=== PATIENT | female | born 1945 | race Caucasian/White ===

== ENCOUNTER 2024-07-22 13:22 | Inpatient (IN) ==
--- NOTE | 2024-07-22 13:39 | EKG ---
Test Reason : ams Blood Pressure : */* mmHG Vent. Rate : 61 BPM Atrial Rate : 61 BPM P-R Int : 142 ms QRS Dur : 78 ms QT Int : 462 ms P-R-T Axes : 55 5 44 degrees QTc Int : 465 ms Normal sinus rhythm Normal ECG No previous ECGs available Confirmed by Kun Barton MD ([id number]) on 07/23/2024 6:18:21 AM Referred By: Confirmed By: Kun Barton MD
--- NOTE | 2024-07-22 13:50 | DR.AMS ---
HPI Time Seen Time Seen by Provider: 07/22/24 13:48 Complaint Cheif Complaint Doctors Comments: Patient was brought in by EMS, they responded to an altered mental status wound got there is states that she was alert we evaluated here and found that she was at [facility] on fourth and the night and was sent back home. She complained of some shortness of breath cough green sputum and headache here as reported. She is afebrile here but her blood pressure was elevated at 173/86. Her oxygen saturation was 96% on room air. Patient also had diarrhea for the last 3 weeks she has got more diarrhea over the last week. Chief Complaint:: Patient brought in via [facility] with reports of AMS, COVID 2 weeks ago, seen in [place] on and but was sent home. Patient c/o SOB, cough with green sputum, and a headache COVID-19 Coronavirus risk:travel/contact w/high risk person: No Has patient experienced Coronavirus symptoms: No Source History Provided: Patient Mode of Arrival Mode of Arrival: EMS Timing Onset of Chief Complaint: 07/22/24 PMH PMH Past Medical History: Yes Past Medical History: Hypertension Past Surgical History: Yes Surgical History: Cholecystectomy Social History Type of Tobacco Use: None Alcohol Use: None Do you use any recreational Drugs:: No Lives With: Family Lives Where: Home Travel Risk Coronavirus risk:travel/contact w/high risk person: No Has patient experienced Coronavirus symptoms: No Infectious screening Have you traveled outside the country in the last 6 months?: No Isolation: Standard ROS Review of Systems Constitutional: Other (Diarrhea off and on for 3 weeks history of urinary tract infection) Eyes: No Symptoms Reported ENTM: No Symptoms Reported Respiratoy: No Symptoms Reported Cardiovascular: No Symptoms Reported Gastrointestinal/Abdominal: Diarrhea and Other (chronic uti) Genitourinary: No Symptoms Reported Neurological: No Symptoms Reported Musculoskeletal: No Symptoms Reported Integumentary: No Symptoms Reported Hematologic/Lymphatic: No Symptoms Reported Endocrine: No Symptoms Reported Psychiatric: No Symptoms Reported PE Vitals Vital Signs: Temp Pulse Resp BP Pulse Ox O2 Del Method 07/22/24 13:34 98.8 F 62 18 173/86 96 Room Air General Limitations: No Limitations General Appearance: In Distress (mild distress) Head Head Exam: Normal Inspection, Atraumatic and Normocephalic Eyes Eye exam: Normal Appearance, PERRL and EOMI ENT ENT Exam: Normal Exam, Normal Oropharynx and Normal External Ear Exam External Ear Exam: Normal External Inspection Neck Neck Exam: Normal Inspection Chest Chest Inspection: Normal Inspection and Symmetric Chest Wall Rise Respiratory Respiratory Exam: Other (rhonchi) Respiratory Exam: Bilateral: Rhonchi Cardiovascular Cardiovascular Exam: Regular Rate Abdominal Exam Abdominal Exam: Normal Inspection, Normal Bowel Sounds and Soft Extremities Extremities Exam: Normal Inspection Back Back Exam: Normal Inspection and Full ROM Neurological Neurological Exam: Alert, Oriented X3 and CN II-XII Intact Patient Oriented To: Person Speech: Fluid Speech Motor Strength - LUE: 3/5 Motor Strength - RUE: 3/5 Motor Strength - LLE: 3/5 Motor Strength - RLE: 3/5 Psychological Psychiatric Exam: Depressed Skin Skin Exam: Warm, Dry and Intact MDM Differential Diagnosis Metabolic: Dehydration and Hyponatremia Toxicologic: Medication Toxicity Infectious: UTI COURSE Treatment Treatment: And her urine analysis so she had too numerous to count white blood cells thus 1 bacteria and leukocyte esterase was positive. The patient did have a CBC that was done and are WBC was 14.6 hemoglobin 10.7 hematocrit 31.6 platelets 418 she did have a metabolic panel done in which the BUN was 21 creatinine was 1.02 the blood sugar was 152 her GFR was greater than 60. Patient remained relatively stable during ER visit. We did give her 1 L bolus of normal saline. Did treat her for the UTI or pyelonephritis back given initial 1 g of Rocephin IV and during the time evaluation we also looked at since she had some pasty dark stool we did do Hemoccult the stool and it was positive. The patient was told with the most probably gram-negative for pyelonephritis and will be following her for heme positive stool which is most probably due to gastritis has been taking a lot of NSAIDs over the last 3 weeks. Contact was made with Dr. Raya at 2024 he excepted patient for observation for treatment for pyelonephritis and monitor of the heme positive stool. ROR Labs Reviewed Laboratory Results Reviewed?: Yes 07/22/24 14:24 07/22/24 14:24 Laboratory: WBC 14.6 X10^3/uL (3.6-10.0) H 07/22/24 14:24 RBC 3.53 X10^6/uL (3.5-5.4) 07/22/24 14:24 Hgb 10.7 g/dL (12.0-16.0) L 07/22/24 14:24 Hct 31.6 % (36.0-47.0) L 07/22/24 14:24 MCV 89.6 fL (80.0-100.0) 07/22/24 14:24 MCH 30.3 pg (27.0-34.0) 07/22/24 14:24 MCHC 33.9 g/dL (33.0-35.0) 07/22/24 14: RDW 14.8 % (11.6-16.5) 07/22/24 14:24 Plt Count 410 X10^3/uL (150.0-450.0) 07/22/24 14:24 Plt Count Comment Adequate (ADEQUATE) 07/22/24 14:24 MPV 8.1 fL (7.4-11.0) 07/22/24 14:24 Neut % (Auto) 90.6 % (42.0-75.0) H 07/22/24 14:24 Lymph % (Auto) 6.4 % (21.0-51.0) L 07/22/24 14:24 [place] % (Auto) 2.6 % (0.0-13.0) 07/22/24 14:24 Eos % (Auto) 0.0 % (0.9-2.9) L 07/22/24 14:24 Baso % (Auto) 0.4 % (0.2-1.0) 07/22/24 14:24 Neut # (Auto) 13.2 x10^3/uL (2.2-4.8) H 07/22/24 14:24 Lymph # (Auto) 0.9 X10^3/uL (1.3-2.9) L 07/22/24 14:24 [place] # (Auto) 0.4 x10^3/uL (0.3-0.8) 07/22/24 14:24 Eos # (Auto) 0.0 x10^3/uL (0.0-0.2) 07/22/24 14:24 Baso # (Auto) 0.1 X10^3/uL (0.0-0.1) 07/22/24 14: Absolute Nucleated RBC 0.0 /100WBC 07/22/24 14:24 Total Counted 100 07/22/24 14:24 Neutrophils % (Manual) 90 % (39-76) H 07/22/24 14:24 Band Neutrophils % 2 % (0-10) 07/22/24 14:24 Lymphocytes % (Manual) 6 % (13-43) L 07/22/24 14:24 Monocytes % (Manual) 2 % (4-9) L 07/22/24 14:24 Plt Morphology Comment Normal (NORMAL) 07/22/24 14:24 RBC Morphology Normal (NORMAL) 07/22/24 14:24 Sodium 138 mmol/L (136-145) 07/22/24 14:24 Corrected Sodium 139 mmol/L (136-145) 07/22/24 14:24 Potassium 3.6 mmol/L (3.5-5.1) 07/22/24 14:24 Chloride 102 mmol/L (98-107) 07/22/24 14:24 Carbon Dioxide 22.9 mmol/L (21-32) 07/22/24 14:24 BUN 21 mg/dL (7-18) H 07/22/24 14:24 Creatinine 1.02 mg/dL (0.55-1.02) 07/22/24 14:24 Est GFR (MDRD) Af Amer > 60 (>60) 07/22/24 14:24 Est GFR (MDRD) Non-Af 55 (>60) L 07/22/24 14:24 Glucose 152 mg/dL (65-99) H 07/22/24 14:24 Calcium 8.9 mg/dL (8.5-10.1) 07/22/24 14:24 Corrected Calcium 10.2 mg/dL (8.5-10.1) H 07/22/24 14:24 Total Bilirubin 0.40 mg/dL (0.2-1.0) 07/22/24 14:24 AST 40 Units/L (15-37) H 07/22/24 14:24 ALT 23 Units/L (12-78) 07/22/24 14:24 Alkaline Phosphatase 126 Units/L (46-116) H 07/22/24 14:24 Total Protein 7.8 g/dL (6.4-8.2) 07/22/24 14:24 Albumin 2.4 g/dL (3.4-5.0) L 07/22/24 14:24 Globulin 5.4 g/dL (2.5-4.5) H 07/22/24 14:24 Albumin/Globulin Ratio 0.4 Ratio (1.1-2.1) L 07/22/24 14:24 Specimen Type Catherized urine 07/22/24 15:06 Urine Color Yellow (YELLOW) 07/22/24 15:06 Urine Appearance Hazy (CLEAR) 07/22/24 15:06 Urine pH 6.5 (5.0 - 8.0) 07/22/24 15:06 Ur Specific [place] 1.015 (1.000-1.030) 07/22/24 15:06 Urine Protein 2+ (NEGATIVE) 07/22/24 15:06 Urine Glucose (UA) Negative (NEGATIVE) 07/22/24 15:06 Urine Ketones Negative (NEGATIVE) 07/22/24 15:06 Urine Blood 2+ (NEGATIVE) 07/22/24 15:06 Urine Nitrite Negative (NEGATIVE) 07/22/24 15:06 Urine Bilirubin Negative (NEGATIVE) 07/22/24 15:06 Urine Urobilinogen Normal (NORMAL) 07/22/24 15:06 Ur Leukocyte Esterase 2+ (NEGATIVE) 07/22/24 15:06 Urine RBC 0-2 /HPF (0-3) 07/22/24 15:06 Urine WBC Tntc /HPF (0-5) A 07/22/24 15:06 Ur Squamous Epith Cells Few /HPF (NEGATIVE) 07/22/24 15:06 Urine Bacteria Trace /HPF (NEGATIVE) 07/22/24 15:06 Urine Yeast Few /HPF (NEGATIVE) 07/22/24 15:06 Ur Culture Indicated? Yes/culture set up 07/22/24 15:06 Stool Occult Blood Positive (NEGATIVE) A 07/22/24 16:50 Opioid Opioid Risk Tool Age (Yoseph box if 16-45): No History of Preadolescent Sexual Abuse: No Total: 0 Total Score Risk Category: Low Risk Copyright: Hayden AGUDELO predicting aberrant behaviors Discharge Plan Diagnosis Discharge Problem: Pyelonephritis, Dehydration, Heme positive stool Discharge Plan Patient Disposition: 09 ADMITTED INPATIENT Condition: Stable Prescriptions: No Action losartan 50 mg tablet 50 mg PO QDAY celecoxib 200 mg capsule 1 PO BID tizanidine 2 mg tablet 2 mg PO QPM azithromycin 250 mg tablet 250 mg PO DIRECTED sertraline 100 mg tablet 100 mg PO QDAY amlodipine 5 mg tablet 5 mg PO QDAY omeprazole 40 mg capsule,delayed release(DR/EC) 40 mg PO BID propranolol 40 mg tablet 40 mg PO BID methenamine hippurate 1 gram tablet 1 g PO BID levothyroxine 50 mcg tablet 50 mcg PO QDAY cephalexin 500 mg capsule PO nystatin 100,000 unit/gram cream 1 applic TOPICAL TID dexamethasone 4 mg tablet 4 mg PO QDAY diclofenac sodium 75 mg tablet,delayed release (DR/EC) 75 mg PO BID ketoconazole 2 % cream 1 applic TOPICAL 1-2XD oxybutynin chloride 5 mg tablet 5 mg PO BID rosuvastatin 40 mg tablet 40 mg PO QDAY Health Concerns: Post Hospitalization: new medications and changes needed to prevent readmission or further decline. Pt educated and given instructions on all concerns. Plan of Treatment: Continue with present treatment and follow up plan. Pt is to keep follow up appointment as instructed and take medications as ordered. Orders to Discharge Patient Discharge Orders: Transfer (Routine); Ordered 07/22/24 Ordered By: Jovanny Reid Follow ups/Referrals Follow ups/Referrals: [facility],None [STAFF PHYSICIAN] - 3 days Instructions Stand Alone Forms: Find Help Web Site, Post Hospital Follow Up Care
[2024-07-22] MEDS: NS 1,000 ML IV 1,000 ML IV ONE (14:19)
[2024-07-22 14:35] LABS: BASOPHILS # (AUTO) 0.1 X10^3/uL (0.0-0.1); BASOPHILS % (AUTO) 0.4 % (0.2-1.0); HEMATOCRIT 31.6 % (36.0-47.0); HEMOGLOBIN 10.7 g/dL (12.0-16.0); LYMPHOCYTES # (AUTO) 0.9 X10^3/uL (1.3-2.9); LYMPHOCYTES % (AUTO) 6.4 % (21.0-51.0); MEAN CORPUSCULAR HEMOGLOBIN 30.3 pg (27.0-34.0); MEAN CORPUSCULAR HGB CONC 33.9 g/dL (33.0-35.0); MEAN CORPUSCULAR VOLUME 89.6 fL (80.0-100.0); MEAN PLATELET VOLUME 8.1 fL (7.4-11.0); MONOCYTES # (AUTO) 0.4 x10^3/uL (0.3-0.8); MONOCYTES % (AUTO) 2.6 % (0.0-13.0); NEUTROPHILS # (AUTO) 13.2 x10^3/uL (2.2-4.8); NEUTROPHILS % (AUTO) 90.6 % (42.0-75.0); PLATELET COUNT 410 X10^3/uL (150.0-450.0); RED BLOOD COUNT 3.53 X10^6/uL (3.5-5.4); RED CELL DISTRIBUTION WIDTH 14.8 % (11.6-16.5); WHITE BLOOD COUNT 14.6 X10^3/uL (3.6-10.0)
[2024-07-22 14:50] LABS: ALANINE AMINOTRANSFERASE 23 Units/L (12-78); ALBUMIN 2.4 g/dL (3.4-5.0); ALKALINE PHOSPHATASE 126 Units/L (46-116); ASPARTATE AMINO TRANSFERASE 40 Units/L (15-37); BLOOD UREA NITROGEN 21 mg/dL (7-18); CALCIUM 8.9 mg/dL (8.5-10.1); CARBON DIOXIDE 22.9 mmol/L (21-32); CHLORIDE 102 mmol/L (98-107); COR CA(FOR HYPOALB) 10.2 mg/dL (8.5-10.1); COR NA(FOR HYPERGLY) 139 mmol/L (136-145); CREATININE 1.02 mg/dL (0.55-1.02); GLUCOSE 152 mg/dL (65-99); POTASSIUM 3.6 mmol/L (3.5-5.1); SODIUM 138 mmol/L (136-145); TOTAL PROTEIN 7.8 g/dL (6.4-8.2); eGFR NON BLACK RACES 55 (>60)
[2024-07-22 14:57] LABS: BAND NEUTROPHILS % 2 % (0-10); PLATELET MORPHOLOGY COMMENT NORMAL (NORMAL)
[2024-07-22 15:15] LABS: BILIRUBIN,URINE NEGATIVE (NEGATIVE); BLOOD/HEMOGLOBIN,URINE 2+ (NEGATIVE); GLUCOSE, URINE NEGATIVE (NEGATIVE); KETONES,URINE NEGATIVE (NEGATIVE); LEUKOCYTE ESTERASE ,URINE 2+ (NEGATIVE); NITRITES,URINE NEGATIVE (NEGATIVE); PH,URINE 6.5 (5.0 - 8.0); PROTEIN,URINE 2+ (NEGATIVE); UROBILINOGEN,URINE NORMAL (NORMAL)
[2024-07-22 15:29] LABS: COLOR,URINE YELLOW (YELLOW)
[2024-07-22 15:30] LABS: APPEARANCE,URINE HAZY (CLEAR)
[2024-07-22 15:31] LABS: BACTERIA,URINE TRACE /HPF (NEGATIVE); RBC,URINE 0-2 /HPF (0-3); SQUAMOUS EPITHELIAL CELL,UR FEW /HPF (NEGATIVE); YEAST,URINE FEW /HPF (NEGATIVE)
[2024-07-22] MEDS: ROCEPHIN VIAL 1 GRAM IVP ONE (16:43)
[2024-07-22] MEDS: ROCEPHIN VIAL 1 GRAM IM ONE (16:53)
[2024-07-22] MEDS: ROCEPHIN VIAL 1 GRAM 1 G in NS 100 ML IV 100 ML IV SCH (21:13)
[2024-07-22] MEDS: NS 1,000 ML IV 1,000 ML IV SCH (22:17)
[2024-07-22] MEDS: TYLENOL 325 MG TAB PO PRN (23:12)
[2024-07-22 23:19] VITALS: BMI 27.6
[2024-07-23 05:10] LABS: BASOPHILS % (AUTO) 0.1 % (0.2-1.0); HEMATOCRIT 27.7 % (36.0-47.0); HEMOGLOBIN 9.5 g/dL (12.0-16.0); LYMPHOCYTES # (AUTO) 1.8 X10^3/uL (1.3-2.9); LYMPHOCYTES % (AUTO) 19.2 % (21.0-51.0); MEAN CORPUSCULAR HEMOGLOBIN 30.5 pg (27.0-34.0); MEAN CORPUSCULAR HGB CONC 34.2 g/dL (33.0-35.0); MEAN CORPUSCULAR VOLUME 89.2 fL (80.0-100.0); MEAN PLATELET VOLUME 8.2 fL (7.4-11.0); MONOCYTES # (AUTO) 0.8 x10^3/uL (0.3-0.8); NEUTROPHILS # (AUTO) 6.7 x10^3/uL (2.2-4.8); NEUTROPHILS % (AUTO) 71.7 % (42.0-75.0); PLATELET COUNT 381 X10^3/uL (150.0-450.0); RED CELL DISTRIBUTION WIDTH 14.6 % (11.6-16.5); WHITE BLOOD COUNT 9.3 X10^3/uL (3.6-10.0)
[2024-07-23 05:24] LABS: BLOOD UREA NITROGEN 17 mg/dL (7-18); CALCIUM 8.6 mg/dL (8.5-10.1); CARBON DIOXIDE 22.3 mmol/L (21-32); CHLORIDE 104 mmol/L (98-107); CREATININE 0.79 mg/dL (0.55-1.02); GLUCOSE 101 mg/dL (65-99); POTASSIUM 3.1 mmol/L (3.5-5.1); SODIUM 138 mmol/L (136-145); eGFR NON BLACK RACES > 60 (>60)
[2024-07-23] MEDS ORDERED: CONSULT PHARMACY - POTASSIUM & MAGNESIUM XX SCH (07:00)
[2024-07-23] MEDS ORDERED: NS 1,000 ML IV 1,000 ML with MAGNESIUM SULFATE 50% INJ VIAL 1 G IV SCH (08:00)
[2024-07-23] MEDS ORDERED: PROPRANOLOL 40 MG PO SCH (09:00)
[2024-07-23] MEDS ORDERED: K-DUR TAB 20 MEQ PO SCH (09:00)
[2024-07-23] MEDS ORDERED: MAG-OX TAB PO SCH (09:00)
[2024-07-23] MEDS ORDERED: PATIENT'S HOME MEDICATION (Rosuvastatin 40 mg tablet) PO SCH (09:00)
[2024-07-23] MEDS ORDERED: ZOLOFT ONE (09:11)
[2024-07-23] MEDS: NS + KCL 20 MEQ/L 1,000 ML with MAGNESIUM SULFATE 50% INJ VIAL 1 G IV SCH (09:20)
[2024-07-23] MEDS: PROTONIX INJ 40 MG VIAL IVP SCH (09:22)
[2024-07-23] MEDS: ZOLOFT PO SCH (09:29)
[2024-07-23] MEDS: CRESTOR TAB 10 MG PO SCH (09:30)
[2024-07-23] MEDS: SYNTHROID 50 mcg TAB PO SCH (09:33)
[2024-07-23] MEDS: DITROPAN TAB 5 MG PO SCH (09:33)
[2024-07-23] MEDS: NORVASC TAB 5 MG PO SCH (09:33)
[2024-07-23] MEDS: INDERAL TAB 10 MG PO SCH (09:34)
[2024-07-23] MEDS: COZAAR PO SCH (09:37)
--- NOTE | 2024-07-23 10:12 | DR.H&P ---
H&P History & Physical for Day of: H&P Date: 07/23/24 Chief Complaint Chief Complaint: weakness, poor appetite, diarrhea History of Present Illness History of Present Illness: Ms Gaines is a 79y/o female with a PMH of HTN, HLD , NATHAN, hypothyroidism and GERD presented with generalized weakness, diarrhea and decreased appetite. She was seen in the [facility] ER last Tuesday and tested positive for COVID. She went again on due to not feeling better, was given nystatin cream and antibiotic for UTI. She continued to have loose stools that were black in color. Denies N/V or abdominal pain. Patient does take celebrex and diclofenac. She has had EGD in the past but years ago. She does report some cough. She is currently on room air. ER work up showed anemia, UA consistent with infection, FOBT +. She was started on hydration and IV Rocephin. Labs/imaging reviewed: -Hgb 9.5 WBC 9.3 K 3.1 Mag 1.4 BUN/Cr 17/0.79 FOBT + -Urine Cx pending Plan: Continue IV Rocephin, follow urine Cx. Will order CXR. Check stool studies, repeat H&H. Consult Dr Mcdonald. Continue IV protonix. Check iron studies. Replace K and Mag. Resume home medications. Continue hydration. PT/OT as tolerated. Monitor AM labs/imaging. Past Medical History Past Medical History: Hypertension Past Surgical History Surgical History: Cholecystectomy Family History Family Medical History: Cancer, [place] and Hypertension Social History Type of Tobacco Use: None Alcohol Use: None Drug Use: None Medications Home Medications: Home Medications Medication Instructions Recorded Confirmed Type amlodipine 5 mg tablet 5 mg PO QDAY 07/22/24 07/22/24 History azithromycin 250 mg tablet 250 mg PO DIRECTED 07/22/24 07/22/24 History celecoxib 200 mg capsule 200 mg PO BID 07/22/24 07/22/24 History cephalexin 500 mg capsule 500 mg PO Q8H 07/22/24 07/22/24 History dexamethasone 4 mg tablet 4 mg PO QDAY 07/22/24 07/22/24 History diclofenac sodium 75 mg 75 mg PO BID 07/22/24 07/22/24 History tablet,delayed release ketoconazole 2 % topical cream 1 applic topical 1-2XD 07/22/24 07/22/24 History levothyroxine 50 mcg tablet 50 mcg PO QDAY 07/22/24 07/22/24 History losartan 50 mg tablet 50 mg PO QDAY 07/22/24 07/22/24 History methenamine hippurate 1 gram tablet 1 g PO BID 07/22/24 07/22/24 History nystatin 100,000 unit/gram topical 1 applic topical TID 07/22/24 07/22/24 History cream omeprazole 40 mg capsule,delayed 40 mg PO BID 07/22/24 07/22/24 History release oxybutynin chloride 5 mg tablet 5 mg PO BID 07/22/24 07/22/24 History propranolol 40 mg tablet 40 mg PO BID 07/22/24 07/22/24 History rosuvastatin 40 mg tablet 40 mg PO QDAY 07/22/24 07/22/24 History sertraline 100 mg tablet 100 mg PO QDAY 07/22/24 07/22/24 History tizanidine 2 mg tablet 2 mg PO QPM 07/22/24 07/22/24 History Allergies Allergies Allergy/AdvReac Type Severity Reaction Status Date / Time No Known Allergies Allergy Verified 07/22/24 13:40 Labs 07/23/24 04:24 07/23/24 04:24 Labs: Laboratory WBC 9.3 X10^3/uL (3.6-10.0) 07/23/24 04:24 RBC 3.10 X10^6/uL (3.5-5.4) L 07/23/24 04:24 Hgb 9.5 g/dL (12.0-16.0) L 07/23/24 04:24 Hct 27.7 % (36.0-47.0) L 07/23/24 04:24 MCV 89.2 fL (80.0-100.0) 07/23/24 04:24 MCH 30.5 pg (27.0-34.0) 07/23/24 04:24 MCHC 34.2 g/dL (33.0-35.0) 07/23/24 04:24 RDW 14.6 % (11.6-16.5) 07/23/24 04:24 Plt Count 381 X10^3/uL (150.0-450.0) 07/23/24 04:24 Plt Count Comment Adequate (ADEQUATE) 07/22/24 14:24 MPV 8.2 fL (7.4-11.0) 07/23/24 04:24 Neut % (Auto) 71.7 % (42.0-75.0) 07/23/24 04:24 Lymph % (Auto) 19.2 % (21.0-51.0) L 07/23/24 04:24 [place] % (Auto) 9.0 % (0.0-13.0) 07/23/24 04:24 Eos % (Auto) 0.0 % (0.9-2.9) L 07/23/24 04:24 Baso % (Auto) 0.1 % (0.2-1.0) L 07/23/24 04:24 Neut # (Auto) 6.7 x10^3/uL (2.2-4.8) H 07/23/24 04:24 Lymph # (Auto) 1.8 X10^3/uL (1.3-2.9) 07/23/24 04:24 [place] # (Auto) 0.8 x10^3/uL (0.3-0.8) 07/23/24 04:24 Eos # (Auto) 0.0 x10^3/uL (0.0-0.2) 07/23/24 04:24 Baso # (Auto) 0.0 X10^3/uL (0.0-0.1) 07/23/24 04:24 Absolute Nucleated RBC 0.0 /100WBC 07/23/24 04:24 Total Counted 100 07/22/24 14:24 Neutrophils % (Manual) 90 % (39-76) H 07/22/24 14:24 Band Neutrophils % 2 % (0-10) 07/22/24 14:24 Lymphocytes % (Manual) 6 % (13-43) L 07/22/24 14:24 Monocytes % (Manual) 2 % (4-9) L 07/22/24 14:24 Plt Morphology Comment Normal (NORMAL) 07/22/24 14:24 RBC Morphology Normal (NORMAL) 07/22/24 14:24 Sodium 138 mmol/L (136-145) 07/23/24 04:24 Corrected Sodium TNP 07/23/24 04:24 Potassium 3.1 mmol/L (3.5-5.1) L 07/23/24 04:24 Chloride 104 mmol/L (98-107) 07/23/24 04:24 Carbon Dioxide 22.3 mmol/L (21-32) 07/23/24 04:24 BUN 17 mg/dL (7-18) 07/23/24 04:24 Creatinine 0.79 mg/dL (0.55-1.02) 07/23/24 04:24 Est GFR (MDRD) Af Amer > 60 (>60) 07/23/24 04:24 Est GFR (MDRD) Non-Af > 60 (>60) 07/23/24 04:24 Glucose 101 mg/dL (65-99) H 07/23/24 04:24 Calcium 8.6 mg/dL (8.5-10.1) 07/23/24 04:24 Corrected Calcium 10.2 mg/dL (8.5-10.1) H 07/22/24 14:24 Magnesium 1.4 mg/dL (2.0-2.9) L 07/23/24 04:24 Total Bilirubin 0.40 mg/dL (0.2-1.0) 07/22/24 14:24 AST 40 Units/L (15-37) H 07/22/24 14:24 ALT 23 Units/L (12-78) 07/22/24 14:24 Alkaline Phosphatase 126 Units/L (46-116) H 07/22/24 14:24 Total Protein 7.8 g/dL (6.4-8.2) 07/22/24 14:24 Albumin 2.4 g/dL (3.4-5.0) L 07/22/24 14:24 Globulin 5.4 g/dL (2.5-4.5) H 07/22/24 14:24 Albumin/Globulin Ratio 0.4 Ratio (1.1-2.1) L 07/22/24 14:24 Specimen Type Catherized urine 07/22/24 15:06 Urine Color Yellow (YELLOW) 07/22/24 15:06 Urine Appearance Hazy (CLEAR) 07/22/24 15:06 Urine pH 6.5 (5.0 - 8.0) 07/22/24 15:06 Ur Specific [place] 1.015 (1.000-1.030) 07/22/24 15:06 Urine Protein 2+ (NEGATIVE) 07/22/24 15:06 Urine Glucose (UA) Negative (NEGATIVE) 07/22/24 15:06 Urine Ketones Negative (NEGATIVE) 07/22/24 15:06 Urine Blood 2+ (NEGATIVE) 07/22/24 15:06 Urine Nitrite Negative (NEGATIVE) 07/22/24 15:06 Urine Bilirubin Negative (NEGATIVE) 07/22/24 15:06 Urine Urobilinogen Normal (NORMAL) 07/22/24 15:06 Ur Leukocyte Esterase 2+ (NEGATIVE) 07/22/24 15:06 Urine RBC 0-2 /HPF (0-3) 07/22/24 15:06 Urine WBC Tntc /HPF (0-5) A 07/22/24 15:06 Ur Squamous Epith Cells Few /HPF (NEGATIVE) 07/22/24 15:06 Urine Bacteria Trace /HPF (NEGATIVE) 07/22/24 15:06 Urine Yeast Few /HPF (NEGATIVE) 07/22/24 15:06 Ur Culture Indicated? Yes/culture set up 07/22/24 15:06 Stool Occult Blood Positive (NEGATIVE) A 07/22/24 16:50 Review of Systems Constitutional: Weakness Eyes: No Symptoms Reported ENT: No Symptoms Reported Respiratory: Cough Cardiovascular: No Symptoms Reported Gastrointestinal: Diarrhea and Melena Genitourinary: No Symptoms Reported Musculoskeletal: No Symptoms Reported Skin: No Symptoms Reported Neurological: Confusion Physical Exam Vital Signs: Vital Signs Temperature 97.5 F Pulse Rate [Left Radial] 64 Respiratory Rate 20 Blood Pressure [Right Arm] 160/80 O2 Sat by Pulse Oximetry 94 Oriented: Normal Eyes: Normal Respiratory: Diminished Throughout Cardiovascular: Normal Auscultation: Bowel Sounds: Normal Palpation: Normal Tenderness: Normal Skin: Decreased [place] Musculoskeletal: Normal Psychiatric: Normal Mood Description: Calm Affect: Normal Speech Pattern: Clear and Appropriate Assessment/Plan (1) Anemia: Qualifiers: Anemia type: unspecified type Qualified Code(s): D64.9 - Anemia, unspecified Status: Chronic (2) Dehydration: Status: Acute (3) Heme positive stool: Status: Acute (4) UTI (urinary tract infection): Qualifiers: Urinary tract infection type: acute cystitis Hematuria presence: without hematuria Qualified Code(s): N30.00 - Acute cystitis without hematuria Status: Acute (5) Gastritis: Qualifiers: Gastritis type: unspecified gastritis Chronicity: unspecified Gastritis bleeding: with bleeding Qualified Code(s): K29.71 - Gastritis, unspec ified, with bleeding Status: Acute (6) Generalized weakness: Status: Acute (7) Hypokalemia: Status: Acute (8) Hypomagnesemia: Status: Acute (9) HTN (hypertension): Qualifiers: Hypertension type: primary hypertension Qualified Code(s): I10 - Essential (primary) hypertension Status: Chronic Review H&P Reviewed: Yes Patient was examined?: Yes
--- NOTE | 2024-07-23 10:17 | RAD ---
EXAM: Portable chest HISTORY: Productive cough COMPARISON: None available FINDINGS: Heart size is normal. Ruby are normal. Lung gongora are clear. There is a large hiatal hernia pre sent. No pleural effusions or pneumothoraces identified. Bony thorax is unremarkable. IMPRESSION: Lungs clear Large hiatal hernia THIS IS AN ELECTRONICALLY VERIFIED FINAL REPORT 07/23/2024 10:14 AM - Electronically signed by Francisco Cotto MD
[2024-07-23 12:43] LABS: HEMATOCRIT 27.5 % (36.0-47.0); HEMOGLOBIN 9.2 g/dL (12.0-16.0)
[2024-07-23 12:54] LABS: ALANINE AMINOTRANSFERASE 20 Units/L (12-78); ALBUMIN 2.1 g/dL (3.4-5.0); ALKALINE PHOSPHATASE 98 Units/L (46-116); ASPARTATE AMINO TRANSFERASE 37 Units/L (15-37); COR CA(FOR HYPOALB) 10.1 mg/dL (8.5-10.1); TOTAL PROTEIN 6.8 g/dL (6.4-8.2)
[2024-07-23] MEDS: HIBICLENS WASH EXT ONE (20:34)
[2024-07-24 05:47] LABS: BASOPHILS # (AUTO) 0.1 X10^3/uL (0.0-0.1); BASOPHILS % (AUTO) 0.6 % (0.2-1.0); EOSINOPHILS # (AUTO) 0.1 x10^3/uL (0.0-0.2); EOSINOPHILS % (AUTO) 0.8 % (0.9-2.9); HEMATOCRIT 28.4 % (36.0-47.0); HEMOGLOBIN 9.7 g/dL (12.0-16.0); LYMPHOCYTES # (AUTO) 1.9 X10^3/uL (1.3-2.9); LYMPHOCYTES % (AUTO) 16.1 % (21.0-51.0); MEAN CORPUSCULAR HEMOGLOBIN 30.4 pg (27.0-34.0); MEAN CORPUSCULAR HGB CONC 34.1 g/dL (33.0-35.0); MEAN CORPUSCULAR VOLUME 89.1 fL (80.0-100.0); MEAN PLATELET VOLUME 8.2 fL (7.4-11.0); MONOCYTES # (AUTO) 0.9 x10^3/uL (0.3-0.8); MONOCYTES % (AUTO) 7.5 % (0.0-13.0); NEUTROPHILS # (AUTO) 8.8 x10^3/uL (2.2-4.8); PLATELET COUNT 401 X10^3/uL (150.0-450.0); RED BLOOD COUNT 3.18 X10^6/uL (3.5-5.4); RED CELL DISTRIBUTION WIDTH 14.9 % (11.6-16.5); WHITE BLOOD COUNT 11.7 X10^3/uL (3.6-10.0)
[2024-07-24 06:08] LABS: ALANINE AMINOTRANSFERASE 16 Units/L (12-78); ALKALINE PHOSPHATASE 93 Units/L (46-116); ASPARTATE AMINO TRANSFERASE 20 Units/L (15-37); BLOOD UREA NITROGEN 10 mg/dL (7-18); CALCIUM 8.4 mg/dL (8.5-10.1); CARBON DIOXIDE 21.9 mmol/L (21-32); CHLORIDE 105 mmol/L (98-107); CREATININE 0.74 mg/dL (0.55-1.02); GLUCOSE 91 mg/dL (65-99); POTASSIUM 3.5 mmol/L (3.5-5.1); SODIUM 137 mmol/L (136-145); TOTAL PROTEIN 6.4 g/dL (6.4-8.2); eGFR NON BLACK RACES > 60 (>60)
[2024-07-24] MEDS: BUTT CREAM (COMPOUND) TOP PRN (06:08)
[2024-07-24] MEDS ORDERED: CONSULT PHARMACY - POTASSIUM & MAGNESIUM XX SCH (07:00)
[2024-07-24] MEDS ORDERED: ROBINUL ONE (08:34)
[2024-07-24] MEDS ORDERED: XYLOCAINE 2 % (PLAIN) ONE (08:34)
[2024-07-24] MEDS ORDERED: DIPRIVAN VIAL ONE (08:34)
[2024-07-24] MEDS ORDERED: K-RIDER 10 MEQ/100 ML WATER 10 MEQ/100 ML BAG IV SCH (09:00)
--- NOTE | 2024-07-24 09:27 | PCM.PROG ---
Progress Note Progress Note for Day of Date of Exam: 07/24/24 Subjective Subjective: Patient seen at bedside, no acute events overnight. She just got back from EGD. It showed large hiatal hernia and gastritis. Family states patient was not acting like herself yesterday, she was mostly quiet and did not eat much. Her diarrhea has improved. Hgb is stable. She is on IV antibiotics for UTI. CXR and stool studies were negative. Dr Mcdonald is following, plan for colonoscopy tomorrow. Labs/imaging reviewed: -Hgb 9.7 WBC 11.7 K 3.5 BUN/Cr 10/0.74 Mag 2.0 -Urine Cx: -Stool studies (-) Plan: Follow surgery recommendations. clears today, colonoscopy in the AM. Replace electrolytes as per protocol. Will order CT-brain, add neuro checks. Continue IV Rocephin, add Diflucan. Follow final cultures. Monitor Hgb. Monitor AM labs/imaging. Past Medical Family Social History Allergies: Allergies No Known Allergies Allergy (Verified 07/22/24 13:40) Vital Signs and I&O's Vital Signs: Vital Signs Temperature 98.2 F Pulse Rate [Left Radial] 61 Pulse Rate 59 Respiratory Rate 16 Respiratory Rate 20 Blood Pressure [Right Arm] 180/74 Blood Pressure 96/59 O2 Sat by Pulse Oximetry 100 O2 Sat by Pulse Oximetry 95 Intake and Output: Intake & Output 07/21/24 07/22/24 07/23/24 07/24/24 23:59 23:59 23:59 23:59 Intake Total 115 / 115 3235 / 3235 1449 / 1449 Balance 115 / 115 3235 / 3235 1449 / 1449 Physical Exam Oriented: Unable to test Eyes: Normal Throat: Normal Respiratory: Generalized and Diminished Cardiovascular: Normal Auscultation: Bowel Sounds: Normal Palpation: Normal Tenderness: Normal Skin: Decreased [place]urgur Musculoskeletal: Normal Psychiatric: Normal Mood Description: Calm Affect: Normal Laboratory and Diagnostics 07/24/24 05:15 07/24/24 05:15 Labs: 07/22/24 15:06 Urine,Catheterized Urine Culture - Preliminary 07/24/24 00:02 Stool - Final Laboratory WBC 11.7 X10^3/uL (3.6-10.0) H 07/24/24 05:15 RBC 3.18 X10^6/uL (3.5-5.4) L 07/24/24 05:15 Hgb 9.7 g/dL (12.0-16.0) L 07/24/24 05:15 Hct 28.4 % (36.0-47.0) L 07/24/24 05:15 MCV 89.1 fL (80.0-100.0) 07/24/24 05:15 MCH 30.4 pg (27.0-34.0) 07/24/24 05:15 MCHC 34.1 g/dL (33.0-35.0) 07/24/24 05:15 RDW 14.9 % (11.6-16.5) 07/24/24 05:15 Plt Count 401 X10^3/uL (150.0-450.0) 07/24/24 05:15 Plt Count Comment Adequate (ADEQUATE) 07/22/24 14:24 MPV 8.2 fL (7.4-11.0) 07/24/24 05:15 Neut % (Auto) 75.0 % (42.0-75.0) 07/24/24 05:15 Lymph % (Auto) 16.1 % (21.0-51.0) L 07/24/24 05:15 [place] % (Auto) 7.5 % (0.0-13.0) 07/24/24 05:15 Eos % (Auto) 0.8 % (0.9-2.9) L 07/24/24 05:15 Baso % (Auto) 0.6 % (0.2-1.0) 07/24/24 05:15 Neut # (Auto) 8.8 x10^3/uL (2.2-4.8) H 07/24/24 05:15 Lymph # (Auto) 1.9 X10^3/uL (1.3-2.9) 07/24/24 05:15 [place] # (Auto) 0.9 x10^3/uL (0.3-0.8) H 07/24/24 05:15 Eos # (Auto) 0.1 x10^3/uL (0.0-0.2) 07/24/24 05:15 Baso # (Auto) 0.1 X10^3/uL (0.0-0.1) 07/24/24 05:15 Absolute Nucleated RBC 0.0 /100WBC 07/24/24 05:15 Total Counted 100 07/22/24 14:24 Neutrophils % (Manual) 90 % (39-76) H 07/22/24 14:24 Band Neutrophils % 2 % (0-10) 07/22/24 14:24 Lymphocytes % (Manual) 6 % (13-43) L 07/22/24 14:24 Monocytes % (Manual) 2 % (4-9) L 07/22/24 14:24 Plt Morphology Comment Normal (NORMAL) 07/22/24 14:24 RBC Morphology Normal (NORMAL) 07/22/24 14:24 Sodium 137 mmol/L (136-145) 07/24/24 05:15 Corrected Sodium TNP 07/24/24 05:15 Potassium 3.5 mmol/L (3.5-5.1) 07/24/24 05:15 Chloride 105 mmol/L (98-107) 07/24/24 05:15 Carbon Dioxide 21.9 mmol/L (21-32) 07/24/24 05:15 BUN 10 mg/dL (7-18) 07/24/24 05:15 Creatinine 0.74 mg/dL (0.55-1.02) 07/24/24 05:15 Est GFR (MDRD) Af Amer > 60 (>60) 07/24/24 05:15 Est GFR (MDRD) Non-Af > 60 (>60) 07/24/24 05:15 Glucose 91 mg/dL (65-99) 07/24/24 05:15 Calcium 8.4 mg/dL (8.5-10.1) L 07/24/24 05:15 Corrected Calcium 10.0 mg/dL (8.5-10.1) 07/24/24 05:15 Magnesium 2.0 mg/dL (2.0-2.9) 07/24/24 05:15 Iron 36 ug/dL (50-175) L 07/23/24 10:05 TIBC 204 ug/dL (250-450) L 07/23/24 10:05 Ferritin 407 ng/mL (8-252) H 07/23/24 10:05 Total Bilirubin 0.30 mg/dL (0.2-1.0) 07/24/24 05:15 AST 20 Units/L (15-37) 07/24/24 05:15 ALT 16 Units/L (12-78) 07/24/24 05:15 Alkaline Phosphatase 93 Units/L (46-116) 07/24/24 05:15 Total Protein 6.4 g/dL (6.4-8.2) 07/24/24 05:15 Albumin 2.0 g/dL (3.4-5.0) L 07/24/24 05:15 Globulin 4.4 g/dL (2.5-4.5) 07/24/24 05:15 Albumin/Globulin Ratio 0.5 Ratio (1.1-2.1) L 07/24/24 05:15 Vitamin B12 1417 pg/mL (193-986) H 07/23/24 10:05 Folate 3.9 ng/mL (>8.6) L 07/23/24 10:05 Specimen Type Catherized urine 07/22/24 15:06 Urine Color Yellow (YELLOW) 07/22/24 15:06 Urine Appearance Hazy (CLEAR) 07/22/24 15:06 Urine pH 6.5 (5.0 - 8.0) 07/22/24 15:06 Ur Specific [place] 1.015 (1.000-1.030) 07/22/24 15:06 Urine Protein 2+ (NEGATIVE) 07/22/24 15:06 Urine Glucose (UA) Negative (NEGATIVE) 07/22/24 15:06 Urine Ketones Negative (NEGATIVE) 07/22/24 15:06 Urine Blood 2+ (NEGATIVE) 07/22/24 15:06 Urine Nitrite Negative (NEGATIVE) 07/22/24 15:06 Urine Bilirubin Negative (NEGATIVE) 07/22/24 15:06 Urine Urobilinogen Normal (NORMAL) 07/22/24 15:06 Ur Leukocyte Esterase 2+ (NEGATIVE) 07/22/24 15:06 Urine RBC 0-2 /HPF (0-3) 07/22/24 15:06 Urine WBC Tntc /HPF (0-5) A 07/22/24 15:06 Ur Squamous Epith Cells Few /HPF (NEGATIVE) 07/22/24 15:06 Urine Bacteria Trace /HPF (NEGATIVE) 07/22/24 15:06 Urine Yeast Few /HPF (NEGATIVE) 07/22/24 15:06 Ur Culture Indicated? Yes/culture set up 07/22/24 15:06 Stool Occult Blood Positive (NEGATIVE) A 07/22/24 16:50 Stool for White Cells Negative (NEGATIVE) 07/24/24 00:02 Stl C. diff Tox B Gene Negative (NEGATIVE) 07/24/24 00:02 Stl C. diff [id number] Presumptive negative (NEGATIVE) 07/24/24 00:02 Plan (1) Anemia: Status: Chronic Qualifiers: Anemia type: unspecified type Qualified Code(s): D64.9 - Anemia, unspecified (2) Dehydration: Status: Acute (3) Heme positive stool: Status: Acute (4) UTI (urinary tract infection): Status: Acute Qualifiers: Hematuria presence: without hematuria Urinary tract infection type: acute cystitis Qualified Code(s): N30.00 - Acute cystitis without hematuria (5) Gastritis: Status: Acute Qualifiers: Chronicity: unspecified Gastritis bleeding: with bleeding Gastritis type: unspecified gastritis Qualified Code(s): K29.71 - Gastritis, unspecified, with bleeding (6) Generalized weakness: Status: Acute (7) Hypokalemia: Status: Acute (8) Hypomagnesemia: Status: Acute (9) HTN (hypertension): Status: Chronic Qualifiers: Hypertension type: primary hypertension Qualified Code(s): I10 - Essential (primary) hypertension
[2024-07-24] MEDS: DIPRIVAN VIAL 20 ML ONE (09:31)
[2024-07-24] MEDS: NS 1,000 ML IV 1,000 ML ONE (09:31)
[2024-07-24] MEDS: XYLOCAINE 2 % (PLAIN) ONE (09:32)
[2024-07-24] MEDS: ROBINUL ONE (09:33)
[2024-07-24] MEDS: DIFLUCAN 100 MG IV (MIX by PHARMACY)* 100 MG/50 ML BAG IV SCH (10:17)
[2024-07-24] MEDS: SUPREP BOWEL PREP KIT PO SCH (10:22)
--- NOTE | 2024-07-24 11:08 | CT ---
EXAM: CT head without contrast HISTORY: Altered mental status TECHNIQUE: Axial noncontrast images with coronal and sagittal reformats. Dose reduction procedures were used wi th mA/kv adjusted for body size. COMPARISON: None FINDINGS: The ventricles, cortical sulci, and other CSF spaces are enlarged consistent with generalized atrop hy likely age-related. There is decreased attenuation in the periventricular white matter suggestive of small-vessel vascular disease. There are no focal areas of abnormal attenuation to suggest recen t or remote CVA, hemorrhage, mass lesion, or extra-axial fluid collection. Air-fluid levels are pres ent in the left maxillary sinus, bilateral sphenoid sinuses, and right ethmoid sinuses consistent wit h acute sinusitis. Mucosal inflammatory changes are present in the left frontal sinus. Calvarium is intact IMPRESSION: No acute intracranial abnormality identified Generalized atrophy likely age-related Diffuse small-vessel vascular disease Findings suggestive of acute left maxillary sinus, acute bilateral sphenoid sinusitis and acute right ethmoid sinusitis THIS IS AN ELECTRONICALLY VERIFIED FINAL REPORT 07/24/2024 11:05 AM - Electronically signed by Francisco Cotto MD
[2024-07-24] MEDS ORDERED: FLONASE NASAL SPRAY ENOSTRIL PRN (11:53)
[2024-07-24] MEDS: CONSULT PHARMACY - POTASSIUM & MAGNESIUM XX SCH (19:08)
[2024-07-25 06:11] LABS: BASOPHILS # (AUTO) 0.2 X10^3/uL (0.0-0.1); BASOPHILS % (AUTO) 1.2 % (0.2-1.0); EOSINOPHILS % (AUTO) 0.2 % (0.9-2.9); HEMATOCRIT 27.9 % (36.0-47.0); HEMOGLOBIN 9.5 g/dL (12.0-16.0); LYMPHOCYTES % (AUTO) 15.7 % (21.0-51.0); MEAN CORPUSCULAR HEMOGLOBIN 30.6 pg (27.0-34.0); MEAN CORPUSCULAR HGB CONC 34.2 g/dL (33.0-35.0); MEAN CORPUSCULAR VOLUME 89.5 fL (80.0-100.0); MEAN PLATELET VOLUME 8.6 fL (7.4-11.0); MONOCYTES # (AUTO) 0.9 x10^3/uL (0.3-0.8); MONOCYTES % (AUTO) 6.7 % (0.0-13.0); NEUTROPHILS # (AUTO) 9.8 x10^3/uL (2.2-4.8); NEUTROPHILS % (AUTO) 76.2 % (42.0-75.0); PLATELET COUNT 429 X10^3/uL (150.0-450.0); RED BLOOD COUNT 3.11 X10^6/uL (3.5-5.4); RED CELL DISTRIBUTION WIDTH 15.3 % (11.6-16.5); WHITE BLOOD COUNT 12.9 X10^3/uL (3.6-10.0)
[2024-07-25 06:22] LABS: ALANINE AMINOTRANSFERASE 13 Units/L (12-78); ALBUMIN 1.9 g/dL (3.4-5.0); ALKALINE PHOSPHATASE 88 Units/L (46-116); ASPARTATE AMINO TRANSFERASE 15 Units/L (15-37); BLOOD UREA NITROGEN 11 mg/dL (7-18); CALCIUM 8.6 mg/dL (8.5-10.1); CARBON DIOXIDE 22.2 mmol/L (21-32); CHLORIDE 107 mmol/L (98-107); COR CA(FOR HYPOALB) 10.3 mg/dL (8.5-10.1); CREATININE 0.81 mg/dL (0.55-1.02); GLUCOSE 108 mg/dL (65-99); POTASSIUM 3.4 mmol/L (3.5-5.1); SODIUM 141 mmol/L (136-145); TOTAL PROTEIN 6.3 g/dL (6.4-8.2); eGFR NON BLACK RACES > 60 (>60)
[2024-07-25] MEDS ORDERED: CONSULT PHARMACY - POTASSIUM & MAGNESIUM XX SCH (07:00)
[2024-07-25] MEDS: DIFLUCAN 200 MG IV PREMIX* 200 MG/100 ML BAG IV SCH (09:24)
[2024-07-25] MEDS: K-RIDER 10 MEQ/100 ML WATER 10 MEQ/100 ML BAG IV SCH (09:25)
--- NOTE | 2024-07-25 10:44 | PCM.PROG ---
Progress Note Progress Note for Day of Date of Exam: 07/25/24 Subjective Subjective: Patient seen at bedside, no acute events overnight. She is more awake, alert and verbal today. She was able to eat some yesterday. CT-brain showed acute sinusitis and chronic changes. She is scheduled for colonoscopy today. Labs/imaging reviewed: -Hgb 9.5 WBC 12.9 K 3.4 BUN/Cr 11/0.81 -Urine Cx: yeast -Stool studies (-) Plan: Follow surgery recommendations. Colonoscopy today. Replace electrolytes as per protocol. Continue IV Rocephin and Diflucan. Follow final cultures. Monit or Hgb. Continue protonix. PT/OT as tolerated. Monitor AM labs/imaging. Past Medical Family Social History Allergies: Allergies No Known Allergies Allergy (Verified 07/22/24 13:40) Vital Signs and I&O's Vital Signs: Vital Signs Temperature 97.8 F Temperature 98.6 F Pulse Rate [Left Radial] 65 Pulse Rate [Left Radial] 64 Respiratory Rate 18 Respiratory Rate 19 Blood Pressure [Right Arm] 145/70 Blood Pressure [Right Arm] 160/70 O2 Sat by Pulse Oximetry 98 O2 Sat by Pulse Oximetry 95 Intake and Output: Intake & Output 07/22/24 07/23/24 07/24/24 07/25/24 23:59 23:59 23:59 23:59 Intake Total 115 / 115 3235 / 3235 4107 / 4107 1206 / 1206 Balance 115 / 115 3235 / 3235 4107 / 4107 1206 / 1206 Physical Exam Oriented: Normal Eyes: Normal Ear: Normal Nose: Normal Throat: Normal Respiratory: Generalized and Diminished Cardiovascular: Normal Auscultation: Bowel Sounds: Normal Palpation: Normal Tenderness: Normal Skin: Decreased Turgur Musculoskeletal: Normal Psychiatric: Normal Mood Description: Calm Affect: Normal Speech Pattern: Clear and Appropriate Laboratory and Diagnostics 07/25/24 05:18 07/25/24 05:18 Labs: 07/24/24 00:02 Stool Stool Culture - Preliminary 07/24/24 00:02 Stool - Final 07/22/24 15:06 Urine,Catheterized Urine Culture - Preliminary Laboratory WBC 12.9 X10^3/uL (3.6-10.0) H 07/25/24 05:18 RBC 3.11 X10^6/uL (3.5-5.4) L 07/25/24 05:18 Hgb 9.5 g/dL (12.0-16.0) L 07/25/24 05:18 Hct 27.9 % (36.0-47.0) L 07/25/24 05:18 MCV 89.5 fL (80.0-100.0) 07/25/24 05:18 MCH 30.6 pg (27.0-34.0) 07/25/24 05:18 MCHC 34.2 g/dL (33.0-35.0) 07/25/24 05:18 RDW 15.3 % (11.6-16.5) 07/25/24 05:18 Plt Count 429 X10^3/uL (150.0-450.0) 07/25/24 05:18 Plt Count Comment Adequate (ADEQUATE) 07/22/24 14:24 MPV 8.6 fL (7.4-11.0) 07/25/24 05:18 Neut % (Auto) 76.2 % (42.0-75.0) H 07/25/24 05:18 Lymph % (Auto) 15.7 % (21.0-51.0) L 07/25/24 05:18 [place] % (Auto) 6.7 % (0.0-13.0) 07/25/24 05:18 Eos % (Auto) 0.2 % (0.9-2.9) L 07/25/24 05:18 Baso % (Auto) 1.2 % (0.2-1.0) H 07/25/24 05:18 Neut # (Auto) 9.8 x10^3/uL (2.2-4.8) H 07/25/24 05:18 Lymph # (Auto) 2.0 X10^3/uL (1.3-2.9) 07/25/24 05:18 [place] # (Auto) 0.9 x10^3/uL (0.3-0.8) H 07/25/24 05:18 Eos # (Auto) 0.0 x10^3/uL (0.0-0.2) 07/25/24 05:18 Baso # (Auto) 0.2 X10^3/uL (0.0-0.1) H 07/25/24 05:18 Absolute Nucleated RBC 0.1 /100WBC 07/25/24 05:18 Total Counted 100 07/22/24 14:24 Neutrophils % (Manual) 90 % (39-76) H 07/22/24 14:24 Band Neutrophils % 2 % (0-10) 07/22/24 14:24 Lymphocytes % (Manual) 6 % (13-43) L 07/22/24 14:24 Monocytes % (Manual) 2 % (4-9) L 07/22/24 14:24 Plt Morphology Comment Normal (NORMAL) 07/22/24 14:24 RBC Morphology Normal (NORMAL) 07/22/24 14:24 Sodium 141 mmol/L (136-145) 07/25/24 05:18 Corrected Sodium TNP 07/25/24 05:18 Potassium 3.4 mmol/L (3.5-5.1) L 07/25/24 05:18 Chloride 107 mmol/L (98-107) 07/25/24 05:18 Carbon Dioxide 22.2 mmol/L (21-32) 07/25/24 05:18 BUN 11 mg/dL (7-18) 07/25/24 05:18 Creatinine 0.81 mg/dL (0.55-1.02) 07/25/24 05:18 Est GFR (MDRD) Af Amer > 60 (>60) 07/25/24 05:18 Est GFR (MDRD) Non-Af > 60 (>60) 07/25/24 05:18 Glucose 108 mg/dL (65-99) H 07/25/24 05:18 Calcium 8.6 mg/dL (8.5-10.1) 07/25/24 05:18 Corrected Calcium 10.3 mg/dL (8.5-10.1) H 07/25/24 05:18 Magnesium 2.3 mg/dL (2.0-2.9) 07/25/24 05:18 Iron 36 ug/dL (50-175) L 07/23/24 10:05 TIBC 204 ug/dL (250-450) L 07/23/24 10:05 Ferritin 407 ng/mL (8-252) H 07/23/24 10:05 Total Bilirubin 0.30 mg/dL (0.2-1.0) 07/25/24 05:18 AST 15 Units/L (15-37) 07/25/24 05:18 ALT 13 Units/L (12-78) 07/25/24 05:18 Alkaline Phosphatase 88 Units/L (46-116) 07/25/24 05:18 Total Protein 6.3 g/dL (6.4-8.2) L 07/25/24 05:18 Albumin 1.9 g/dL (3.4-5.0) L 07/25/24 05:18 Globulin 4.4 g/dL (2.5-4.5) 07/25/24 05:18 Albumin/Globulin Ratio 0.4 Ratio (1.1-2.1) L 07/25/24 05:18 Vitamin B12 1417 pg/mL (193-986) H 07/23/24 10:05 Folate 3.9 ng/mL (>8.6) L 07/23/24 10:05 Specimen Type Catherized urine 07/22/24 15:06 Urine Color Yellow (YELLOW) 07/22/24 15:06 Urine Appearance Hazy (CLEAR) 07/22/24 15:06 Urine pH 6.5 (5.0 - 8.0) 07/22/24 15:06 Ur Specific [place] 1.015 (1.000-1.030) 07/22/24 15:06 Urine Protein 2+ (NEGATIVE) 07/22/24 15:06 Urine Glucose (UA) Negative (NEGATIVE) 07/22/24 15:06 Urine Ketones Negative (NEGATIVE) 07/22/24 15:06 Urine Blood 2+ (NEGATIVE) 07/22/24 15:06 Urine Nitrite Negative (NEGATIVE) 07/22/24 15:06 Urine Bilirubin Negative (NEGATIVE) 07/22/24 15:06 Urine Urobilinogen Normal (NORMAL) 07/22/24 15:06 Ur Leukocyte Esterase 2+ (NEGATIVE) 07/22/24 15:06 Urine RBC 0-2 /HPF (0-3) 07/22/24 15:06 Urine WBC Tntc /HPF (0-5) A 07/22/24 15:06 Ur Squamous Epith Cells Few /HPF (NEGATIVE) 07/22/24 15:06 Urine Bacteria Trace /HPF (NEGATIVE) 07/22/24 15:06 Urine Yeast Few /HPF (NEGATIVE) 07/22/24 15:06 Ur Culture Indicated? Yes/culture set up 07/22/24 15:06 Stool Occult Blood Positive (NEGATIVE) A 07/22/24 16:50 Stool for White Cells Negative (NEGATIVE) 07/24/24 00:02 Stl C. diff Tox B Gene Negative (NEGATIVE) 07/24/24 00:02 Stl C. diff [id number] Presumptive negative (NEGATIVE) 07/24/24 00:02 Plan (1) Anemia: Status: Chronic Qualifiers: Anemia type: unspecified type Qualified Code(s): D64.9 - Anemia, unspecified (2) Dehydration: Status: Acute (3) Heme positive stool: Status: Acute (4) UTI (urinary tract infection): Status: Acute Qualifiers: Urinary tract infection type: acute cystitis Hematuria presence: without hematuria Qualified Code(s): N30.00 - Acute cystitis without hematuria (5) Gastritis: Status: Acute Qualifiers: Gastritis type: unspecified gastritis Chronicity: unspecified Gastritis bleeding: with bleeding Qualified Code(s): K29.71 - Gastritis, unspecified, with bleeding (6) Generalized weakness: Status: Acute (7) Hypokalemia: Status: Acute (8) Hypomagnesemia: Status: Acute (9) HTN (hypertension): Status: Chronic Qualifiers: Hypertension type: primary hypertension Qualified Code(s): I10 - Essential (primary) hypertension
[2024-07-25] MEDS: LR 1,000 ML IV 1,000 ML IV ONE (14:40)
[2024-07-25] MEDS: NYSTATIN POWDER TOP SCH (21:41)
[2024-07-26] MEDS: NS 250 ML IV 250 ML IV ONE (00:10)
[2024-07-26] MEDS: DIPRIVAN VIAL 20 ML ONE (00:10)
[2024-07-26 06:22] LABS: BASOPHILS # (AUTO) 0.1 X10^3/uL (0.0-0.1); BASOPHILS % (AUTO) 0.8 % (0.2-1.0); EOSINOPHILS # (AUTO) 0.2 x10^3/uL (0.0-0.2); EOSINOPHILS % (AUTO) 1.9 % (0.9-2.9); HEMATOCRIT 27.5 % (36.0-47.0); HEMOGLOBIN 9.5 g/dL (12.0-16.0); LYMPHOCYTES # (AUTO) 1.6 X10^3/uL (1.3-2.9); LYMPHOCYTES % (AUTO) 15.6 % (21.0-51.0); MEAN CORPUSCULAR HEMOGLOBIN 31.1 pg (27.0-34.0); MEAN CORPUSCULAR HGB CONC 34.6 g/dL (33.0-35.0); MEAN CORPUSCULAR VOLUME 89.9 fL (80.0-100.0); MEAN PLATELET VOLUME 8.6 fL (7.4-11.0); MONOCYTES # (AUTO) 0.8 x10^3/uL (0.3-0.8); MONOCYTES % (AUTO) 7.2 % (0.0-13.0); NEUTROPHILS # (AUTO) 7.8 x10^3/uL (2.2-4.8); NEUTROPHILS % (AUTO) 74.5 % (42.0-75.0); PLATELET COUNT 423 X10^3/uL (150.0-450.0); RED BLOOD COUNT 3.06 X10^6/uL (3.5-5.4); RED CELL DISTRIBUTION WIDTH 14.9 % (11.6-16.5); WHITE BLOOD COUNT 10.4 X10^3/uL (3.6-10.0)
[2024-07-26 06:47] LABS: ALANINE AMINOTRANSFERASE 14 Units/L (12-78); ALBUMIN 1.9 g/dL (3.4-5.0); ALKALINE PHOSPHATASE 83 Units/L (46-116); ASPARTATE AMINO TRANSFERASE 15 Units/L (15-37); BLOOD UREA NITROGEN 6 mg/dL (7-18); CALCIUM 8.5 mg/dL (8.5-10.1); CARBON DIOXIDE 21.5 mmol/L (21-32); CHLORIDE 103 mmol/L (98-107); COR CA(FOR HYPOALB) 10.2 mg/dL (8.5-10.1); CREATININE 0.65 mg/dL (0.55-1.02); GLUCOSE 85 mg/dL (65-99); POTASSIUM 3.9 mmol/L (3.5-5.1); SODIUM 134 mmol/L (136-145); TOTAL PROTEIN 6.3 g/dL (6.4-8.2); eGFR NON BLACK RACES > 60 (>60)
[2024-07-26] MEDS: ZOLOFT ONE (09:38)
--- NOTE | 2024-07-26 10:05 | PCM.PROG ---
Progress Note Progress Note for Day of Date of Exam: 07/26/24 Subjective Subjective: Patient is an 79-year-old female admitted for weakness, anemia, acute cystitis. Patient resting in bed this morning. No acute events overnight. She has had EGD and colonoscopy that does not reveal any active bleeding or acute findings. Labs/imaging reviewed: -WBC 10.4, hemoglobin 9.5, platelets 423, sodium 134, potassium 3.9, creatinine 0.65, glucose 85 -Urine Cx/Stool culture: yeast Plan: Continue IV Rocephin and Diflucan. Follow final cultures. Monitor Hgb, which has remained stable. Continue protonix. PT/OT as tolerated. Monitor AM labs/imaging. Past Medical Family Social History Allergies: Allergies No Known Allergies Allergy (Verified 07/22/24 13:40) Review of Systems ROS changes noted: see HPI Vital Signs and I&O's Vital Signs: Vital Signs Temperature 97.6 F Temperature 98.1 F Pulse Rate [Left Radial] 65 Pulse Rate [Left Radial] 58 Respiratory Rate 17 Respiratory Rate 18 Blood Pressure [Right Arm] 180/77 Blood Pressure [Right Arm] 160/67 O2 Sat by Pulse Oximetry 97 O2 Sat by Pulse Oximetry 99 Intake and Output: Intake & Output 07/23/24 07/24/24 07/25/24 07/26/24 23:59 23:59 23:59 23:59 Intake Total 3235 / 3235 4107 / 4107 3596 / 3596 1160 / 1160 Balance 3235 / 3235 4107 / 4107 3596 / 3596 1160 / 1160 Physical Exam Oriented: Normal Eyes: Normal Ear: Normal Nose: Normal Throat: Normal Respiratory: Generalized and Diminished Cardiovascular: Normal Auscultation: Bowel Sounds: Normal Tenderness: Normal Skin: Decreased [place]urgur Musculoskeletal: Normal Psychiatric: Normal Mood Description: Calm Affect: Normal Speech Pattern: Clear and Appropriate Laboratory and Diagnostics 07/26/24 05:48 07/26/24 05:48 Labs: 07/24/24 00:02 Stool Stool Culture - Preliminary 07/24/24 00:02 Stool - Final 07/22/24 15:06 Urine,Catheterized Urine Culture - Preliminary Laboratory WBC 10.4 X10^3/uL (3.6-10.0) H 07/26/24 05:48 RBC 3.06 X10^6/uL (3.5-5.4) L 07/26/24 05:48 Hgb 9.5 g/dL (12.0-16.0) L 07/26/24 05:48 Hct 27.5 % (36.0-47.0) L 07/26/24 05:48 MCV 89.9 fL (80.0-100.0) 07/26/24 05:48 MCH 31.1 pg (27.0-34.0) 07/26/24 05:48 MCHC 34.6 g/dL (33.0-35.0) 07/26/24 05:48 RDW 14.9 % (11.6-16.5) 07/26/24 05:48 Plt Count 423 X10^3/uL (150.0-450.0) 07/26/24 05:48 Plt Count Comment Adequate (ADEQUATE) 07/22/24 14:24 MPV 8.6 fL (7.4-11.0) 07/26/24 05:48 Neut % (Auto) 74.5 % (42.0-75.0) 07/26/24 05:48 Lymph % (Auto) 15.6 % (21.0-51.0) L 07/26/24 05:48 [place] % (Auto) 7.2 % (0.0-13.0) 07/26/24 05:48 Eos % (Auto) 1.9 % (0.9-2.9) 07/26/24 05:48 Baso % (Auto) 0.8 % (0.2-1.0) 07/26/24 05:48 Neut # (Auto) 7.8 x10^3/uL (2.2-4.8) H 07/26/24 05:48 Lymph # (Auto) 1.6 X10^3/uL (1.3-2.9) 07/26/24 05:48 [place] # (Auto) 0.8 x10^3/uL (0.3-0.8) 07/26/24 05:48 Eos # (Auto) 0.2 x10^3/uL (0.0-0.2) 07/26/24 05:48 Baso # (Auto) 0.1 X10^3/uL (0.0-0.1) 07/26/24 05:48 Absolute Nucleated RBC 0.1 /100WBC 07/26/24 05:48 Total Counted 100 07/22/24 14:24 Neutrophils % (Manual) 90 % (39-76) H 07/22/24 14:24 Band Neutrophils % 2 % (0-10) 07/22/24 14:24 Lymphocytes % (Manual) 6 % (13-43) L 07/22/24 14:24 Monocytes % (Manual) 2 % (4-9) L 07/22/24 14:24 Plt Morphology Comment Normal (NORMAL) 07/22/24 14:24 RBC Morphology Normal (NORMAL) 07/22/24 14:24 Sodium 134 mmol/L (136-145) L 07/26/24 05:48 Corrected Sodium TNP 07/26/24 05:48 Potassium 3.9 mmol/L (3.5-5.1) 07/26/24 05:48 Chloride 103 mmol/L (98-107) 07/26/24 05:48 Carbon Dioxide 21.5 mmol/L (21-32) 07/26/24 05:48 BUN 6 mg/dL (7-18) L 07/26/24 05:48 Creatinine 0.65 mg/dL (0.55-1.02) 07/26/24 05:48 Est GFR (MDRD) Af Amer > 60 (>60) 07/26/24 05:48 Est GFR (MDRD) Non-Af > 60 (>60) 07/26/24 05:48 Glucose 85 mg/dL (65-99) 07/26/24 05:48 Calcium 8.5 mg/dL (8.5-10.1) 07/26/24 05:48 Corrected Calcium 10.2 mg/dL (8.5-10.1) H 07/26/24 05:48 Magnesium 2.0 mg/dL (2.0-2.9) 07/26/24 05:48 Iron 36 ug/dL (50-175) L 07/23/24 10:05 TIBC 204 ug/dL (250-450) L 07/23/24 10:05 Ferritin 407 ng/mL (8-252) H 07/23/24 10:05 Total Bilirubin 0.30 mg/dL (0.2-1.0) 07/26/24 05:48 AST 15 Units/L (15-37) 07/26/24 05:48 ALT 14 Units/L (12-78) 07/26/24 05:48 Alkaline Phosphatase 83 Units/L (46-116) 07/26/24 05:48 Total Protein 6.3 g/dL (6.4-8.2) L 07/26/24 05:48 Albumin 1.9 g/dL (3.4-5.0) L 07/26/24 05:48 Globulin 4.4 g/dL (2.5-4.5) 07/26/24 05:48 Albumin/Globulin Ratio 0.4 Ratio (1.1-2.1) L 07/26/24 05:48 Vitamin B12 1417 pg/mL (193-986) H 07/23/24 10:05 Folate 3.9 ng/mL (>8.6) L 07/23/24 10:05 Specimen Type Catherized urine 07/22/24 15:06 Urine Color Yellow (YELLOW) 07/22/24 15:06 Urine Appearance Hazy (CLEAR) 07/22/24 15:06 Urine pH 6.5 (5.0 - 8.0) 07/22/24 15:06 Ur Specific [place] 1.015 (1.000-1.030) 07/22/24 15:06 Urine Protein 2+ (NEGATIVE) 07/22/24 15:06 Urine Glucose (UA) Negative (NEGATIVE) 07/22/24 15:06 Urine Ketones Negative (NEGATIVE) 07/22/24 15:06 Urine Blood 2+ (NEGATIVE) 07/22/24 15:06 Urine Nitrite Negative (NEGATIVE) 07/22/24 15:06 Urine Bilirubin Negative (NEGATIVE) 07/22/24 15:06 Urine Urobilinogen Normal (NORMAL) 07/22/24 15:06 Ur Leukocyte Esterase 2+ (NEGATIVE) 07/22/24 15:06 Urine RBC 0-2 /HPF (0-3) 07/22/24 15:06 Urine WBC Tntc /HPF (0-5) A 07/22/24 15:06 Ur Squamous Epith Cells Few /HPF (NEGATIVE) 07/22/24 15:06 Urine Bacteria Trace /HPF (NEGATIVE) 07/22/24 15:06 Urine Yeast Few /HPF (NEGATIVE) 07/22/24 15:06 Ur Culture Indicated? Yes/culture set up 07/22/24 15:06 Stool Occult Blood Positive (NEGATIVE) A 07/22/24 16:50 Stool for White Cells Negative (NEGATIVE) 07/24/24 00:02 Stl C. diff Tox B Gene Negative (NEGATIVE) 07/24/24 00:02 Stl C. diff [id number]-NAP1-BI Presumptive negative (NEGATIVE) 07/24/24 00:02 Plan (1) Anemia: Status: Chronic Qualifiers: Anemia type: unspecified type Qualified Code(s): D64.9 - Anemia, unsp ecified (2) Dehydration: Status: Acute (3) Heme positive stool: Status: Acute (4) UTI (urinary tract infection): Status: Acute Qualifiers: Urinary tract infection type: acute cystitis Hematuria presence: without hematuria Qualified Code(s): N30.00 - Acute cystitis without hematuria (5) Gastritis: Status: Acute Qualifiers: Gastritis type: unspecified gastritis Chronicity: unspecified Gastritis bleeding: with bleeding Qualified Code(s): K29.71 - Gastritis, unspecified, with bleeding (6) Generalized weakness: Status: Acute (7) Hypokalemia: Status: Acute (8) Hypomagnesemia: Status: Acute (9) HTN (hypertension): Status: Chronic Qualifiers: Hypertension type: primary hypertension Qualified Code(s): I10 - Essential (primary) hypertension
[2024-07-26] MEDS: ULTRAM PO PRN (21:56)
[2024-07-27] MEDS: NORCO 5/325 MG TAB PO PRN (00:03)
[2024-07-27 06:36] LABS: BASOPHILS # (AUTO) 0.1 X10^3/uL (0.0-0.1); BASOPHILS % (AUTO) 1.3 % (0.2-1.0); EOSINOPHILS # (AUTO) 0.1 x10^3/uL (0.0-0.2); EOSINOPHILS % (AUTO) 1.5 % (0.9-2.9); HEMATOCRIT 25.1 % (36.0-47.0); HEMOGLOBIN 8.6 g/dL (12.0-16.0); LYMPHOCYTES # (AUTO) 2.1 X10^3/uL (1.3-2.9); LYMPHOCYTES % (AUTO) 23.9 % (21.0-51.0); MEAN CORPUSCULAR HEMOGLOBIN 30.5 pg (27.0-34.0); MEAN CORPUSCULAR HGB CONC 34.2 g/dL (33.0-35.0); MEAN PLATELET VOLUME 8.6 fL (7.4-11.0); MONOCYTES # (AUTO) 0.9 x10^3/uL (0.3-0.8); MONOCYTES % (AUTO) 10.7 % (0.0-13.0); NEUTROPHILS # (AUTO) 5.5 x10^3/uL (2.2-4.8); NEUTROPHILS % (AUTO) 62.6 % (42.0-75.0); PLATELET COUNT 471 X10^3/uL (150.0-450.0); RED BLOOD COUNT 2.82 X10^6/uL (3.5-5.4); RED CELL DISTRIBUTION WIDTH 14.8 % (11.6-16.5); WHITE BLOOD COUNT 8.8 X10^3/uL (3.6-10.0)
[2024-07-27 06:58] LABS: ALANINE AMINOTRANSFERASE 14 Units/L (12-78); ALBUMIN 1.7 g/dL (3.4-5.0); ALKALINE PHOSPHATASE 79 Units/L (46-116); ASPARTATE AMINO TRANSFERASE 20 Units/L (15-37); BLOOD UREA NITROGEN 5 mg/dL (7-18); CALCIUM 8.2 mg/dL (8.5-10.1); CARBON DIOXIDE 22.3 mmol/L (21-32); CHLORIDE 101 mmol/L (98-107); GLUCOSE 95 mg/dL (65-99); SODIUM 131 mmol/L (136-145); TOTAL PROTEIN 5.9 g/dL (6.4-8.2); eGFR NON BLACK RACES > 60 (>60)
[2024-07-27] MEDS ORDERED: ZOLOFT ONE (08:23)
--- NOTE | 2024-07-27 14:18 | PCM.PROG ---
Progress Note Progress Note for Day of Date of Exam: 07/27/24 Subjective Subjective: Patient is an 79-year-old female admitted for weakness, anemia, acute cystitis. Patient sitting up in bed this morning. No acute events overnight. She is more alert. She has had EGD and colonoscopy that does not reveal any active bleeding or acute findings. Labs/imaging reviewed: -WBC 8.8, hemoglobin 8.6, platelets 471, sodium 131, potassium 4.0, creatinine 0.70, glucose 95, -Urine Cx/Stool culture: yeast Plan: Continue IV Rocephin and Diflucan. Follow final cultures. Monitor Hgb, which has remained stable. Continue protonix. PT/OT as tolerated. Discharge planning possible rehab placement. Case management following. Monitor AM labs/imaging. Past Medical Family Social History Allergies: Allergies No Known Allergies Allergy (Verified 07/22/24 13:40) Review of Systems ROS changes noted: see HPI Vital Signs and I&O's Vital Signs: Vital Signs Temperature 97.7 F Pulse Rate [Left Radial] 58 Respiratory Rate 20 Blood Pressure [Right Arm] 132/63 O2 Sat by Pulse Oximetry 98 Intake and Output: Intake & Output 07/24/24 07/25/24 07/26/24 07/27/24 23:59 23:59 23:59 23:59 Intake Total 4107 / 4107 3596 / 4596 3423 / 3423 270 / 270 Balance 4107 / 4107 3596 / 4596 3423 / 3423 270 / 270 Physical Exam Oriented: Normal Eyes: Normal Ear: Normal Nose: Normal Throat: Normal Respiratory: Generalized and Diminished Cardiovascular: Normal Auscultation: Bowel Sounds: Normal Tenderness: Normal Skin: Decreased [place] Musculoskeletal: Normal Psychiatric: Normal Mood Description: Calm Affect: Normal Speech Pattern: Clear and Appropriate Laboratory and Diagnostics 07/27/24 06:14 07/27/24 06:14 Labs: 07/24/24 00:02 Stool Stool Culture - Preliminary 07/24/24 00:02 Stool - Final 07/22/24 15:06 Urine,Catheterized Urine Culture - Preliminary Laboratory WBC 8.8 X10^3/uL (3.6-10.0) 07/27/24 06:14 RBC 2.82 X10^6/uL (3.5-5.4) L 07/27/24 06:14 Hgb 8.6 g/dL (12.0-16.0) L 07/27/24 06:14 Hct 25.1 % (36.0-47.0) L 07/27/24 06:14 MCV 89.0 fL (80.0-100.0) 07/27/24 06:14 MCH 30.5 pg (27.0-34.0) 07/27/24 06:14 MCHC 34.2 g/dL (33.0-35.0) 07/27/24 06:14 RDW 14.8 % (11.6-16.5) 07/27/24 06:14 Plt Count 471 X10^3/uL (150.0-450.0) H 07/27/24 06:14 Plt Count Comment Adequate (ADEQUATE) 07/22/24 14:24 MPV 8.6 fL (7.4-11.0) 07/27/24 06:14 Neut % (Auto) 62.6 % (42.0-75.0) 07/27/24 06:14 Lymph % (Auto) 23.9 % (21.0-51.0) 07/27/24 06:14 [place] % (Auto) 10.7 % (0.0-13.0) 07/27/24 06:14 Eos % (Auto) 1.5 % (0.9-2.9) 07/27/24 06:14 Baso % (Auto) 1.3 % (0.2-1.0) H 07/27/24 06:14 Neut # (Auto) 5.5 x10^3/uL (2.2-4.8) H 07/27/24 06:14 Lymph # (Auto) 2.1 X10^3/uL (1.3-2.9) 07/27/24 06:14 [place] # (Auto) 0.9 x10^3/uL (0.3-0.8) H 07/27/24 06:14 Eos # (Auto) 0.1 x10^3/uL (0.0-0.2) 07/27/24 06:14 Baso # (Auto) 0.1 X10^3/uL (0.0-0.1) 07/27/24 06:14 Absolute Nucleated RBC 0.0 /100WBC 07/27/24 06:14 Total Counted 100 07/22/24 14:24 Neutrophils % (Manual) 90 % (39-76) H 07/22/24 14:24 Band Neutrophils % 2 % (0-10) 07/22/24 14:24 Lymphocytes % (Manual) 6 % (13-43) L 07/22/24 14:24 Monocytes % (Manual) 2 % (4-9) L 07/22/24 14:24 Plt Morphology Comment Normal (NORMAL) 07/22/24 14:24 RBC Morphology Normal (NORMAL) 07/22/24 14:24 Sodium 131 mmol/L (136-145) L 07/27/24 06:14 Corrected Sodium TNP 07/27/24 06:14 Potassium 4.0 mmol/L (3.5-5.1) 07/27/24 06:14 Chloride 101 mmol/L (98-107) 07/27/24 06:14 Carbon Dioxide 22.3 mmol/L (21-32) 07/27/24 06:14 BUN 5 mg/dL (7-18) L 07/27/24 06:14 Creatinine 0.70 mg/dL (0.55-1.02) 07/27/24 06:14 Est GFR (MDRD) Af Amer > 60 (>60) 07/27/24 06:14 Est GFR (MDRD) Non-Af > 60 (>60) 07/27/24 06:14 Glucose 95 mg/dL (65-99) 07/27/24 06:14 Calcium 8.2 mg/dL (8.5-10.1) L 07/27/24 06:14 Corrected Calcium 10.0 mg/dL (8.5-10.1) 07/27/24 06:14 Magnesium 2.0 mg/dL (2.0-2.9) 07/26/24 05:48 Iron 36 ug/dL (50-175) L 07/23/24 10:05 TIBC 204 ug/dL (250-450) L 07/23/24 10:05 Ferritin 407 ng/mL (8-252) H 07/23/24 10:05 Total Bilirubin 0.30 mg/dL (0.2-1.0) 07/27/24 06:14 AST 20 Units/L (15-37) 07/27/24 06:14 ALT 14 Units/L (12-78) 07/27/24 06:14 Alkaline Phosphatase 79 Units/L (46-116) 07/27/24 06:14 Total Protein 5.9 g/dL (6.4-8.2) L 07/27/24 06:14 Albumin 1.7 g/dL (3.4-5.0) L 07/27/24 06:14 Globulin 4.2 g/dL (2.5-4.5) 07/27/24 06:14 Albumin/Globulin Ratio 0.4 Ratio (1.1-2.1) L 07/27/24 06:14 Vitamin B12 1417 pg/mL (193-986) H 07/23/24 10:05 Folate 3.9 ng/mL (>8.6) L 07/23/24 10:05 Specimen Type Catherized urine 07/22/24 15:06 Urine Color Yellow (YELLOW) 07/22/24 15:06 Urine Appearance Hazy (CLEAR) 07/22/24 15:06 Urine pH 6.5 (5.0 - 8.0) 07/22/24 15:06 Ur Specific [place] 1.015 (1.000-1.030) 07/22/24 15:06 Urine Protein 2+ (NEGATIVE) 07/22/24 15:06 Urine Glucose (UA) Negative (NEGATIVE) 07/22/24 15:06 Urine Ketones Negative (NEGATIVE) 07/22/24 15:06 Urine Blood 2+ (NEGATIVE) 07/22/24 15:06 Urine Nitrite Negative (NEGATIVE) 07/22/24 15:06 Urine Bilirubin Negative (NEGATIVE) 07/22/24 15:06 Urine Urobilinogen Normal (NORMAL) 07/22/24 15:06 Ur Leukocyte Esterase 2+ (NEGATIVE) 07/22/24 15:06 Urine RBC 0-2 /HPF (0-3) 07/22/24 15:06 Urine WBC Tntc /HPF (0-5) A 07/22/24 15:06 Ur Squamous Epith Cells Few /HPF (NEGATIVE) 07/22/24 15:06 Urine Bacteria Trace /HPF (NEGATIVE) 07/22/24 15:06 Urine Yeast Few /HPF (NEGATIVE) 07/22/24 15:06 Ur Culture Indicated? Yes/culture set up 07/22/24 15:06 Stool Occult Blood Positive (NEGATIVE) A 07/22/24 16:50 Stool for White Cells Negative (NEGATIVE) 07/24/24 00:02 Stl C. diff Tox B Gene Negative (NEGATIVE) 07/24/24 00:02 Stl C. diff [id number] Presumptive negative (NEGATIVE) 07/24/24 00:02 Plan (1) Anemia: Status: Chronic Qualifiers: Anemia type: unspecified type Qualified Code(s): D64.9 - Anemia, unspecified (2) Dehydration: Status: Acute (3) Heme positive stool: Status: Acute (4) UTI (urinary tract infection): Status: Acute Qualifiers: Hematuria presence: without hematuria Urinary tract infection type: acu te cystitis Qualified Code(s): N30.00 - Acute cystitis without hematuria (5) Gastritis: Status: Acute Qualifiers: Chronicity: unspecified Gastritis bleeding: with bleeding Gastritis type: unspecified gastritis Qualified Code(s): K29.71 - Gastritis, unspecified, with bleeding (6) Generalized weakness: Status: Acute (7) Hypokalemia: Status: Acute (8) Hypomagnesemia: Status: Acute (9) HTN (hypertension): Status: Chronic Qualifiers: Hypertension type: primary hypertension Qualified Code(s): I10 - Essential (primary) hypertension
[2024-07-28 05:33] LABS: BASOPHILS % (AUTO) 0.2 % (0.2-1.0); EOSINOPHILS # (AUTO) 0.1 x10^3/uL (0.0-0.2); EOSINOPHILS % (AUTO) 1.4 % (0.9-2.9); HEMATOCRIT 25.4 % (36.0-47.0); HEMOGLOBIN 8.7 g/dL (12.0-16.0); LYMPHOCYTES # (AUTO) 1.8 X10^3/uL (1.3-2.9); LYMPHOCYTES % (AUTO) 20.1 % (21.0-51.0); MEAN CORPUSCULAR HEMOGLOBIN 30.5 pg (27.0-34.0); MEAN CORPUSCULAR HGB CONC 34.1 g/dL (33.0-35.0); MEAN CORPUSCULAR VOLUME 89.5 fL (80.0-100.0); MEAN PLATELET VOLUME 8.9 fL (7.4-11.0); MONOCYTES # (AUTO) 0.9 x10^3/uL (0.3-0.8); MONOCYTES % (AUTO) 10.3 % (0.0-13.0); PLATELET COUNT 429 X10^3/uL (150.0-450.0); RED BLOOD COUNT 2.84 X10^6/uL (3.5-5.4); RED CELL DISTRIBUTION WIDTH 14.9 % (11.6-16.5); WHITE BLOOD COUNT 8.9 X10^3/uL (3.6-10.0)
[2024-07-28 05:42] LABS: ALANINE AMINOTRANSFERASE 14 Units/L (12-78); ALBUMIN 1.7 g/dL (3.4-5.0); ALKALINE PHOSPHATASE 82 Units/L (46-116); ASPARTATE AMINO TRANSFERASE 20 Units/L (15-37); BLOOD UREA NITROGEN 5 mg/dL (7-18); CALCIUM 8.9 mg/dL (8.5-10.1); CARBON DIOXIDE 22.4 mmol/L (21-32); CHLORIDE 101 mmol/L (98-107); COR CA(FOR HYPOALB) 10.7 mg/dL (8.5-10.1); CREATININE 0.67 mg/dL (0.55-1.02); GLUCOSE 82 mg/dL (65-99); POTASSIUM 4.2 mmol/L (3.5-5.1); SODIUM 134 mmol/L (136-145); TOTAL PROTEIN 6.2 g/dL (6.4-8.2); eGFR NON BLACK RACES > 60 (>60)
[2024-07-28] MEDS: ZOLOFT ONE (08:44)
--- NOTE | 2024-07-28 09:40 | EKG ---
Test Reason : shortness of breath Blood Pressure : */* mmHG Vent. Rate : 58 BPM Atrial Rate : 58 BPM P-R Int : 162 ms QRS Dur : 76 ms QT Int : 442 ms P-R-T Axes : 48 6 56 degrees QTc Int : 433 ms Sinus bradycardia Otherwise normal ECG When compared with ECG of 22-JUL-2024 13:35, No significant change was found Confirmed by Kun Barton MD ([id number]) on 07/28/2024 10:36:32 AM Referred By: Confirmed By: Kun Barton MD
[2024-07-28] MEDS: MARCAINE 0.5% IJ ONE (12:45)
[2024-07-28] MEDS: KENALOG INJ 40 MG IM ONE (12:45)
[2024-07-28] MEDS: DEPO-Medrol 80 MG VIAL IM ONE (13:31)
[2024-07-28] MEDS: CHLORASEPTIC SPRAY MT PRN (17:25)
[2024-07-29 05:19] LABS: BASOPHILS # (AUTO) 0.1 X10^3/uL (0.0-0.1); BASOPHILS % (AUTO) 0.6 % (0.2-1.0); HEMATOCRIT 25.3 % (36.0-47.0); HEMOGLOBIN 8.6 g/dL (12.0-16.0); LYMPHOCYTES # (AUTO) 0.9 X10^3/uL (1.3-2.9); LYMPHOCYTES % (AUTO) 10.3 % (21.0-51.0); MEAN CORPUSCULAR HEMOGLOBIN 30.4 pg (27.0-34.0); MEAN CORPUSCULAR HGB CONC 34.2 g/dL (33.0-35.0); MEAN CORPUSCULAR VOLUME 89.1 fL (80.0-100.0); MEAN PLATELET VOLUME 8.9 fL (7.4-11.0); MONOCYTES # (AUTO) 0.3 x10^3/uL (0.3-0.8); MONOCYTES % (AUTO) 3.9 % (0.0-13.0); NEUTROPHILS # (AUTO) 7.5 x10^3/uL (2.2-4.8); NEUTROPHILS % (AUTO) 85.2 % (42.0-75.0); PLATELET COUNT 467 X10^3/uL (150.0-450.0); RED BLOOD COUNT 2.84 X10^6/uL (3.5-5.4); RED CELL DISTRIBUTION WIDTH 14.6 % (11.6-16.5); WHITE BLOOD COUNT 8.7 X10^3/uL (3.6-10.0)
[2024-07-29 05:34] LABS: ALANINE AMINOTRANSFERASE 15 Units/L (12-78); ALBUMIN 1.8 g/dL (3.4-5.0); ALKALINE PHOSPHATASE 91 Units/L (46-116); ASPARTATE AMINO TRANSFERASE 23 Units/L (15-37); BLOOD UREA NITROGEN 7 mg/dL (7-18); CALCIUM 9.2 mg/dL (8.5-10.1); CARBON DIOXIDE 22.3 mmol/L (21-32); CHLORIDE 99 mmol/L (98-107); COR NA(FOR HYPERGLY) 134 mmol/L (136-145); CREATININE 0.66 mg/dL (0.55-1.02); GLUCOSE 128 mg/dL (65-99); POTASSIUM 4.9 mmol/L (3.5-5.1); SODIUM 133 mmol/L (136-145); TOTAL PROTEIN 6.8 g/dL (6.4-8.2); eGFR NON BLACK RACES > 60 (>60)
[2024-07-29] MEDS ORDERED: ZOLOFT ONE (09:15)
[2024-07-29] MEDS: NS 1,000 ML IV 1,000 ML IV SCH (11:27)
[2024-07-30 06:27] LABS: HEMATOCRIT 24.5 % (36.0-47.0); RED BLOOD COUNT 2.78 X10^6/uL (3.5-5.4)
[2024-07-30 06:33] LABS: BASOPHILS # (AUTO) 0.1 X10^3/uL (0.0-0.1); BASOPHILS % (AUTO) 1.2 % (0.2-1.0); HEMOGLOBIN 8.6 g/dL (12.0-16.0); LYMPHOCYTES # (AUTO) 1.3 X10^3/uL (1.3-2.9); LYMPHOCYTES % (AUTO) 14.7 % (21.0-51.0); MEAN CORPUSCULAR HEMOGLOBIN 30.9 pg (27.0-34.0); MEAN CORPUSCULAR VOLUME 88.3 fL (80.0-100.0); MEAN PLATELET VOLUME 9.1 fL (7.4-11.0); MONOCYTES # (AUTO) 0.5 x10^3/uL (0.3-0.8); MONOCYTES % (AUTO) 6.2 % (0.0-13.0); NEUTROPHILS # (AUTO) 6.9 x10^3/uL (2.2-4.8); NEUTROPHILS % (AUTO) 77.9 % (42.0-75.0); PLATELET COUNT 475 X10^3/uL (150.0-450.0); RED CELL DISTRIBUTION WIDTH 14.8 % (11.6-16.5); WHITE BLOOD COUNT 8.8 X10^3/uL (3.6-10.0)
[2024-07-30 06:46] LABS: ALANINE AMINOTRANSFERASE 20 Units/L (12-78); ALBUMIN 1.9 g/dL (3.4-5.0); ALKALINE PHOSPHATASE 92 Units/L (46-116); ASPARTATE AMINO TRANSFERASE 30 Units/L (15-37); BLOOD UREA NITROGEN 9 mg/dL (7-18); CALCIUM 9.1 mg/dL (8.5-10.1); CARBON DIOXIDE 25.6 mmol/L (21-32); CHLORIDE 100 mmol/L (98-107); COR CA(FOR HYPOALB) 10.8 mg/dL (8.5-10.1); CREATININE 0.68 mg/dL (0.55-1.02); GLUCOSE 110 mg/dL (65-99); POTASSIUM 4.2 mmol/L (3.5-5.1); SODIUM 134 mmol/L (136-145); TOTAL PROTEIN 6.8 g/dL (6.4-8.2); eGFR NON BLACK RACES > 60 (>60)
[2024-07-30 07:57] VITALS: PULSE 57; RESP 18
[2024-07-30] MEDS: ZOLOFT ONE (08:23)
[2024-07-30 12:11] VITALS: BP 141/63; TEMP 97.8; O2SAT 97
--- NOTE | 2024-08-03 13:01 | W.DIS.FURT ---
Summary of Discharge Discharge Summary of Date Date of Exam: 07/30/24 Admission Date Date of Admission: 07/22/24 Admission Diagnosis Patient Problems (Updated 07/23/24 @ 10:12 by Marisa Wayne MD) Pyelonephritis (Acute) N12 Dehydration (Acute) E86.0 Heme positive stool (Acute) R19.5 Hospital Course: Ms Gaines is a 79y/o female with a PMH of HTN, HLD, NATHAN, hypothyroidism and GERD presented with generalized weakness, diarrhea and decreased appetite. She was seen in the [facility] ER last Tuesday and tested positive for COVID. She went again on due to not feeling better, was given nystatin cream and antibiotic for UTI. She continued to have loose stools that were black in color. Denies N/V or abdominal pain. Patient does take celebrex and diclofenac. She has had EGD in the past but years ago. She does report some cough. She is currently on room air. ER work up showed anemia, UA consistent with infection, FOBT +. She was started on hydration and IV Rocephin. Her labs were monitored daily and electrolytes were replaced as needed. Dr. Mcdonald was also consulted and patient underwent EGD and colonoscopy during her inpatient stay. Her hemoglobin was monitored and she was on IV Protonix. EGD showed large hiatal hernia and mild gastritis. Colonoscopy showed diverticulosis, satisfactory bowel prep. Her hemoglobin remained stable. Physical therapy was also consulted and recommended rehab placement. Patient was tolerating p.o. intake and working with therapy. She was stable to be discharged to [facility] for rehab placement. She will follow-up with PCP as scheduled. She completed antibiotics for her UTI. Vital Signs: Vital Signs (72 hours) 07/28/24 11:37 07/28/24 12:00 07/28/24 15:38 Temperature 98.7 F 98.7 F 99.1 F Pulse Rate Pulse Rate [Left Radial] Pulse Rate [Right Brachial] 62 62 60 Respiratory Rate 18 18 18 Blood Pressure [Right Arm] 169/70 169/70 140/67 O2 Sat by Pulse Oximetry 95 95 96 Oxygen Delivery Method Room Air Nasal Cannula Room Air Oxygen Flow Rate 2 2 FIO2% 07/28/24 16:36 07/28/24 19:00 07/28/24 19:31 Temperature 97.7 F Pulse Rate Pulse Rate [Left Radial] Pulse Rate [Right Brachial] 62 Respiratory Rate 18 20 Blood Pressure [Right Arm] 140/62 O2 Sat by Pulse Oximetry 95 Oxygen Delivery Method Room Air Room Air Oxygen Flow Rate 2 FIO2% 07/28/24 19:55 07/28/24 19:55 07/29/24 00:00 Temperature 98.0 F Pulse Rate 62 Pulse Rate [Left Radial] 62 Pulse Rate [Right Brachial] 62 Respiratory Rate 18 Blood Pressure [Right Arm] 179/77 O2 Sat by Pulse Oximetry 95 94 L Oxygen Delivery Method Nasal Cannula Room Air Oxygen Flow Rate 2 FIO2% 28 07/29/24 04:00 07/29/24 05:37 07/29/24 08:00 Temperature 98.6 F 98.6 F Pulse Rate Pulse Rate [Left Radial] Pulse Rate [Right Brachial] 68 62 Respiratory Rate 19 20 18 Blood Pressure [Right Arm] 144/68 163/72 O2 Sat by Pulse Oximetry 95 98 Oxygen Delivery Method Room Air Room Air Oxygen Flow Rate FIO2% 07/29/24 08:50 07/29/24 07:00 07/29/24 12:00 Temperature 99.6 F Pulse Rate Pulse Rate [Left Radial] Pulse Rate [Right Brachial] 64 Respiratory Rate 22 Blood Pressure [Right Arm] 142/66 O2 Sat by Pulse Oximetry 96 Oxygen Delivery Method Nasal Cannula Room Air Nasal Cannula Oxygen Flow Rate 2 2 FIO2% 28 07/29/24 13:03 07/29/24 16:00 07/29/24 14:03 Temperature 99.5 F Pulse Rate Pulse Rate [Left Radial] Pulse Rate [Right Brachial] 62 Respiratory Rate 22 20 22 Blood Pressure [Right Arm] O2 Sat by Pulse Oximetry 93 L Oxygen Delivery Method Nasal Cannula Oxygen Flow Rate 2 FIO2% 07/29/24 19:00 07/29/24 19:39 07/29/24 20:47 Temperature 98.3 F Pulse Rate Pulse Rate [Left Radial] Pulse Rate [Right Brachial] 61 Respiratory Rate 18 Blood Pressure [Right Arm] 149/67 O2 Sat by Pulse Oximetry 94 L Oxygen Delivery Method Room Air Room Air Nasal Cannula Oxygen Flow Rate 2 FIO2% 28 07/30/24 00:00 07/29/24 06:37 07/30/24 04:00 Temperature 98.0 F 97.9 F Pulse Rate Pulse Rate [Left Radial] Pulse Rate [Right Brachial] 61 62 Respiratory Rate 19 18 19 Blood Pressure [Right Arm] 140/65 157/69 O2 Sat by Pulse Oximetry 94 L 94 L Oxygen Delivery Method Room Air Room Air Oxygen Flow Rate 2 2 FIO2% 07/30/24 07:56 07/30/24 08:32 07/30/24 09:28 Temperature 97.9 F Pulse Rate Pulse Rate [Left Radial] Pulse Rate [Right Brachial] 57 L Respiratory Rate 18 18 Blood Pressure [Right Arm] 175/77 O2 Sat by Pulse Oximetry 95 Oxygen Delivery Method Room Air Nasal Cannula Oxygen Flow Rate 2 2 FIO2% 28 07/30/24 07:00 07/30/24 09:32 07/30/24 12:00 Temperature 97.8 F Pulse Rate Pulse Rate [Left Radial] Pulse Rate [Right Brachial] 57 L Respiratory Rate 18 18 Blood Pressure [Right Arm] 141/63 O2 Sat by Pulse Oximetry 97 Oxygen Delivery Method Room Air Room Air Oxygen Flow Rate 2 FIO2% Labs: Laboratory Last Values WBC 8.8 X10^3/uL (3.6-10.0) 07/30/24 05:23 RBC 2.78 X10^6/uL (3.5-5.4) L 07/30/24 05:23 Hgb 8.6 g/dL (12.0-16.0) L 07/30/24 05:23 Hct 24.5 % (36.0-47.0) L 07/30/24 05:23 MCV 88.3 fL (80.0-100.0) 07/30/24 05:23 MCH 30.9 pg (27.0-34.0) 07/30/24 05:23 MCHC 35.0 g/dL (33.0-35.0) 07/30/24 05:23 RDW 14.8 % (11.6-16.5) 07/30/24 05:23 Plt Count 475 X10^3/uL (150.0-450.0) H 07/30/24 05:23 Plt Count Comment Adequate (ADEQUATE) 07/22/24 14:24 MPV 9.1 fL (7.4-11.0) 07/30/24 05:23 Neut % (Auto) 77.9 % (42.0-75.0) H 07/30/24 05:23 Lymph % (Auto) 14.7 % (21.0-51.0) L 07/30/24 05:23 [place] % (Auto) 6.2 % (0.0-13.0) 07/30/24 05:23 Eos % (Auto) 0.0 % (0.9-2.9) L 07/30/24 05:23 Baso % (Auto) 1.2 % (0.2-1.0) H 07/30/24 05:23 Neut # (Auto) 6.9 x10^3/uL (2.2-4.8) H 07/30/24 05:23 Lymph # (Auto) 1.3 X10^3/uL (1.3-2.9) 07/30/24 05:23 [place] # (Auto) 0.5 x10^3/uL (0.3-0.8) 07/30/24 05:23 Eos # (Auto) 0.0 x10^3/uL (0.0-0.2) 07/30/24 05:23 Baso # (Auto) 0.1 X10^3/uL (0.0-0.1) 07/30/24 05:23 Absolute Nucleated RBC 0.0 /100WBC 07/30/24 05:23 Total Counted 100 07/22/24 14:24 Neutrophils % (Manual) 90 % (39-76) H 07/22/24 14:24 Band Neutrophils % 2 % (0-10) 07/22/24 14:24 Lymphocytes % (Manual) 6 % (13-43) L 07/22/24 14:24 Monocytes % (Manual) 2 % (4-9) L 07/22/24 14:24 Plt Morphology Comment Normal (NORMAL) 07/22/24 14:24 RBC Morphology Normal (NORMAL) 07/22/24 14:24 Sodium 134 mmol/L (136-145) L 07/30/24 05:23 Corrected Sodium TNP 07/30/24 05:23 Potassium 4.2 mmol/L (3.5-5.1) 07/30/24 05:23 Chloride 100 mmol/L (98-107) 07/30/24 05:23 Carbon Dioxide 25.6 mmol/L (21-32) 07/30/24 05:23 BUN 9 mg/dL (7-18) 07/30/24 05:23 Creatinine 0.68 mg/dL (0.55-1.02) 07/30/24 05:23 Est GFR (MDRD) Af Amer > 60 (>60) 07/30/24 05:23 Est GFR (MDRD) Non-Af > 60 (>60) 07/30/24 05:23 Glucose 110 mg/dL (65-99) H 07/30/24 05:23 Calcium 9.1 mg/dL (8.5-10.1) 07/30/24 05:23 Corrected Calcium 10.8 mg/dL (8.5-10.1) H 07/30/24 05:23 Magnesium 2.0 mg/dL (2.0-2.9) 07/26/24 05:48 Iron 36 ug/dL (50-175) L 07/23/24 10:05 TIBC 204 ug/dL (250-450) L 07/23/24 10:05 Ferritin 407 ng/mL (8-252) H 07/23/24 10:05 Total Bilirubin 0.20 mg/dL (0.2-1.0) 07/30/24 05:23 AST 30 Units/L (15-37) 07/30/24 05:23 ALT 20 Units/L (12-78) 07/30/24 05:23 Alkaline Phosphatase 92 Units/L (46-116) 07/30/24 05:23 Total Protein 6.8 g/dL (6.4-8.2) 07/30/24 05:23 Albumin 1.9 g/dL (3.4-5.0) L 07/30/24 05:23 Globulin 4.9 g/dL (2.5-4.5) H 07/30/24 05:23 Albumin/Globulin Ratio 0.4 Ratio (1.1-2.1) L 07/30/24 05:23 Vitamin B12 1417 pg/mL (193-986) H 07/23/24 10:05 Folate 3.9 ng/mL (>8.6) L 07/23/24 10:05 Specimen Type Catherized urine 07/22/24 15:06 Urine Color Yellow (YELLOW) 07/22/24 15:06 Urine Appearance Hazy (CLEAR) 07/22/24 15:06 Urine pH 6.5 (5.0 - 8.0) 07/22/24 15:06 Ur Specific [place] 1.015 (1.000-1.030) 07/22/24 15:06 Urine Protein 2+ (NEGATIVE) 07/22/24 15:06 Urine Glucose (UA) Negative (NEGATIVE) 07/22/24 15:06 Urine Ketones Negative (NEGATIVE) 07/22/24 15:06 Urine Blood 2+ (NEGATIVE) 07/22/24 15:06 Urine Nitrite Negative (NEGATIVE) 07/22/24 15:06 Urine Bilirubin Negative (NEGATIVE) 07/22/24 15:06 Urine Urobilinogen Normal (NORMAL) 07/22/24 15:06 Ur Leukocyte Esterase 2+ (NEGATIVE) 07/22/24 15:06 Urine RBC 0-2 /HPF (0-3) 07/22/24 15:06 Urine WBC Tntc /HPF (0-5) A 07/22/24 15:06 Ur Squamous Epith Cells Few /HPF (NEGATIVE) 07/22/24 15:06 Urine Bacteria Trace /HPF (NEGATIVE) 07/22/24 15:06 Urine Yeast Few /HPF (NEGATIVE) 07/22/24 15:06 Ur Culture Indicated? Yes/culture set up 07/22/24 15:06 Stool Occult Blood Positive (NEGATIVE) A 07/22/24 16:50 Stool for White Cells Negative (NEGATIVE) 07/24/24 00:02 Stl C. diff Tox B Gene Negative (NEGATIVE) 07/24/24 00:02 Stl C. diff [id number] Presumptive negative (NEGATIVE) 07/24/24 00:02 Tissue Pathology See comment. 07/24/24 08:48 Reason For Visit: URINARY TRACT INFECTION, ANEMIA, DEHYDRATION Discharge Diagnosis All Active Problems (Updated 07/23/24 @ 10:12 by Marisa Wayne MD) Hypomagnesemia (Acute) Hypokalemia (Acute) Generalized weakness (Acute) HTN (hypertension) (Chronic) Gastritis (Acute) UTI (urinary tract infection) (Acute) Anemia (Chronic) Pyelonephritis (Acute) Dehydration (Acute) Heme positive stool (Acute) Plan of Treatment: Continue with present treatment and follow up plan. Pt is to keep follow up appointment as instructed and take medications as ordered. Discharge Medications Discharge Medications: No Known Allergies Allergy (Verified 07/22/24 13:40) CONTINUE taking the following medications amlodipine 5 mg tablet 5 mg PO QDAY 07/22/24 [History] celecoxib 200 mg capsule 200 mg PO BID 07/22/24 [History] dexamethasone 4 mg tablet 4 mg PO QDAY 07/22/24 [History] diclofenac sodium 75 mg tablet,delayed release 75 mg PO BID 07/22/24 [History] ketoconazole 2 % topical cream 1 applic topical 1-2XD 07/22/24 [History] levothyroxine 50 mcg tablet 50 mcg PO QDAY 07/22/24 [History] losartan 50 mg tablet 50 mg PO QDAY 07/22/24 [History] methenamine hippurate 1 gram tablet 1 g PO BID 07/22/24 [History] nystatin 100,000 unit/gram topical cream 1 applic topical TID 07/22/24 [History] omeprazole 40 mg capsule,delayed release 40 mg PO BID 07/22/24 [History] oxybutynin chloride 5 mg tablet 5 mg PO BID 07/22/24 [History] propranolol 40 mg tablet 40 mg PO BID 07/22/24 [History] rosuvastatin 40 mg tablet 40 mg PO QDAY 07/22/24 [History] sertraline 100 mg tablet 100 mg PO QDAY 07/22/24 [History] tizanidine 2 mg tablet 2 mg PO QPM 07/22/24 [History] New Prescriptions imiquimod 5 % topical cream packet 1 applic topical ONCE #24 ea 07/28/24 [Rx] Discharge Disposition Discharge Disposition: [facility] Discharge Condition: Stable Discharge Plan Discharge Plan Hospital Course: Ms Gaines is a 79y/o female with a PMH of HTN, HLD, NATHAN, hypothyroidism and GERD presented with generalized weakness, diarrhea and decreased appetite. She was seen in the [facility] ER last Tuesday and tested positive for COVID. She went again on due to not feeling better, was given nystatin cream and antibiotic for UTI. She continued to have loose stools that were black in color. Denies N/V or abdominal pain. Patient does take celebrex and diclofenac. She has had EGD in the past but years ago. She does report some cough. She is currently on room air. ER work up showed anemia, UA consistent with infection, FOBT +. She was started on hydration and IV Rocephin. Her labs were monitored daily and electrolytes were replaced as needed. Dr. Mcdonald was also consulted and patient underwent EGD and colonoscopy during her inpatient stay. Her hemoglobin was monitored and she was on IV Protonix. EGD showed large hiatal hernia and mild gastritis. Colonoscopy showed diverticulosis, satisfactory bowel prep. Her hemoglobin remained stable. Physical therapy was also consulted and recommended rehab placement. Patient was tolerating p.o. intake and working with therapy. She was stable to be discharged to [facility] for rehab placement. She will follow-up with PCP as scheduled. She completed antibiotics for her UTI. Patient Disposition: [facility] Condition: Stable Health Concerns: Post Hospitalization: new medications and changes needed to prevent readmission or further decline. Pt educated and given instructions on all concerns. Care Plan Goals: Problem: Alteration in Mental Status Goal: Patient will stay oriented to their cognitive ability Instructions: Follow provided instructions. Follow up with primary physician as directed. Contact primary care physician or report to the closest Emergency Room if condition worsens. Plan of Treatment: Continue with present treatment and follow up plan. Pt is to keep follow up appointment as instructed and take medications as ordered. Prescriptions: New imiquimod 5 % cream in packet 1 applic topical ONCE Qty: 24 1RF Rx Instructions: apply sparingly to affected area daily for 2 weeks, then 2wks off, then 2 week on. Continued losartan 50 mg tablet 50 mg PO QDAY celecoxib 200 mg capsule 200 mg PO BID tizanidine 2 mg tablet 2 mg PO QPM sertraline 100 mg tablet 100 mg PO QDAY amlodipine 5 mg tablet 5 mg PO QDAY omeprazole 40 mg capsule,delayed release(DR/EC) 40 mg PO BID propranolol 40 mg tablet 40 mg PO BID methenamine hippurate 1 gram tablet 1 g PO BID levothyroxine 50 mcg tablet 50 mcg PO QDAY nystatin 100,000 unit/gram cream 1 applic TOPICAL TID dexamethasone 4 mg tablet 4 mg PO QDAY diclofenac sodium 75 mg tablet,delayed release (DR/EC) 75 mg PO BID ketoconazole 2 % cream 1 applic TOPICAL 1-2XD oxybutynin chloride 5 mg tablet 5 mg PO BID rosuvastatin 40 mg tablet 40 mg PO QDAY Discontinued azithromycin 250 mg tablet 250 mg PO DIRECTED cephalexin 500 mg capsule 500 mg PO Q8H Orders to Discharge Patient Discharge Orders: Discharge (Routine); Ordered 07/30/24 Ordered By: Marisa Wayne Follow ups/Referrals Follow ups/Referrals: Raphael Scott [Primary Care Provider] - Instructions Instructions: Colonoscopy, Adult, Care After, [id number], Monitored Anesthesia Care, Care After Stand Alone Forms: Find Help Web Site, Post Hospital Follow Up Care
== END 2024-07-30 16:25 | DRG 690 ==
LOC: ER 13:22 → MED/SURG 13:22
PROVIDERS: ADMIT Family Medicine; ATTEND Family Medicine
DX: B37.41 Candidal cystitis and urethritis; K21.00 Gastro-esophageal reflux disease with esophagitis, without bleeding; E86.0 Dehydration; R51.9 Headache, unspecified; C44.311 Basal cell carcinoma of skin of nose; M25.562 Pain in left knee; I10 Essential (primary) hypertension; U09.9 Post COVID-19 condition, unspecified; E03.8 Other specified hypothyroidism; R00.1 Bradycardia, unspecified; M25.561 Pain in right knee; N10 Acute pyelonephritis; R26.89 Other abnormalities of gait and mobility; R06.02 Shortness of breath; Z60.8 Other problems related to social environment; E87.6 Hypokalemia; K29.70 Gastritis, unspecified, without bleeding; N30.00 Acute cystitis without hematuria; K92.1 Melena; M17.0 Bilateral primary osteoarthritis of knee; Z74.1 Need for assistance with personal care; R41.82 Altered mental status, unspecified; R05.8 Other specified cough; D50.8 Other iron deficiency anemias; K44.9 Diaphragmatic hernia without obstruction or gangrene; R53.1 Weakness; E83.42 Hypomagnesemia